=== PATIENT | male | born 1965 | race Caucasian/White ===

== ENCOUNTER 2016-08-10 07:29 | Inpatient (IN) | payer MEDICARE, BC ==
[2016-08-10] MEDS ORDERED: Lactated Ringers 1,000 ML IV SCH (08:30)
[2016-08-10] MEDS ORDERED: Thrombin (Bovine) 5,000 Unit Kit ONE (08:41)
[2016-08-10] MEDS ORDERED: Povidone-Iodine 10% Soln 118.25 ML Bottle ONE (08:41)
[2016-08-10] MEDS ORDERED: Albuterol/Ipratropium 3.0-0.5 MG/3 ML Neb Soln NEB ONE (09:00)
[2016-08-10] MEDS ORDERED: Propofol 200 MG/20 ML SDV ONE (09:01)
[2016-08-10] MEDS ORDERED: Lactated Ringers 1,000 ML ONE ×2 (09:01→13:16)
[2016-08-10] MEDS ORDERED: Succinylcholine/Normal Saline 200 MG/10 ML Syringe ONE (09:01)
[2016-08-10] MEDS ORDERED: Scopolamine 1.5 MG Transdermal Patch ONE (09:01)
[2016-08-10] MEDS ORDERED: Midazolam 1 MG/ML 2 ML SDV ONE (09:01)
[2016-08-10] MEDS ORDERED: fentaNYL 250 MCG/5 ML SDV ONE ×2 (09:01→13:08)
[2016-08-10] MEDS ORDERED: Ropivacaine 49.25 ML, Ketorolac 30 MG, EPINEPHrine 0.5 MG, cloNIDine 80 MCG, Sodium Chl... INJECT SCH ×5 (10:00)
[2016-08-10] MEDS ORDERED: Aluminum Hydroxide/Magnesium Hydroxide/Simethicone Susp 30 ML Cup PO PRN (10:06)
[2016-08-10] MEDS ORDERED: Magnesium Hydroxide 400 MG/5 ML Susp 30 ML Cup PO PRN (10:06)
[2016-08-10] MEDS ORDERED: Naloxone 0.4 MG/ML SDV IVPUSH PRN (10:06)
[2016-08-10] MEDS ORDERED: Ondansetron 4 MG/2 ML SDV IVPUSH PRN (10:06)
[2016-08-10] MEDS ORDERED: Sodium Chloride 0.9% 10 ML Syringe FLUSH PRN (10:06)
[2016-08-10] MEDS ORDERED: Neostigmine Methylsulfate 1 MG/ML 5 ML Syringe ONE (10:18)
[2016-08-10] MEDS ORDERED: Dexamethasone 4 MG/ML SDV ONE (10:18)
[2016-08-10] MEDS ORDERED: Rocuronium 50 MG/5 ML Vial ONE ×2 (10:18→11:21)
[2016-08-10] MEDS ORDERED: Lidocaine 1% 2 ML ONE (10:21)
[2016-08-10] MEDS ORDERED: ceFAZolin 2 GM in Premix Bag 1 BAG IV SCH (11:00)
[2016-08-10] MEDS: ceFAZolin 2 GM in Premix Bag 1 BAG IV ONE ×3 (11:05→20:15)
[2016-08-10] MEDS: Tranexamic Acid 1,000 MG in Sodium Chloride 0.9% 50 ML IV SCH ×2 (11:15→14:55)
[2016-08-10] MEDS: HYDROmorphone 1 MG/ML Syringe IVPUSH PRN ×2 (16:00→20:27)
[2016-08-10] MEDS ORDERED: Albuterol 0.083% 2.5 MG/3 ML Neb Soln NEB PRN (18:04)
[2016-08-10] MEDS ORDERED: Albuterol 8 GM Inhaler INH PRN (18:04)
[2016-08-10] MEDS: ceFAZolin 2 GM in Sodium Chloride 0.9% 50 ML IV SCH (18:07)
[2016-08-10] MEDS: Acetaminophen/oxyCODONE 325-5 MG Tab PO PRN (18:17)
--- NOTE | 2016-08-10 19:41 | PCM.CONS ---
H&P History of Present Illness - General Date of Service: 08/10/16 Admit Problem/Dx: Admission Diagnosis/Problem Admission Diagnosis/Problem Lumbar spinal fusion Source of Information: Patient, Provider History Limitations: Reports: No limitations - History of Present Illness Initial Comments - Free Text/Narative: This patient is a 51-year-old gentleman who I been asked to see by Dr. Chen for hospitalist consult and systems with medical management during the postoperative period. Mr. Narvaez has done well during the initial postoperative period, pain control has been adequate. Vital signs have been stable and he has remained afebrile. Currently denies chest pain, shortness of breath, nausea or vomiting. He has been relatively healthy other than his ongoing difficulty with back pain prior to the surgery. Lower Back Pain Score (Numeric/FACES): 0 - Related Data Allergies/Adverse Reactions: Allergies Allergy/AdvReac Type Severity Reaction Status Date / Time bupropion Allergy Cannot Verified 08/10/16 07:56 Remember escitalopram oxalate Allergy Diaphoresis Verified 08/10/16 07:56 [From Lexapro] venom-honey bee Allergy Airway Verified 08/10/16 07:56 [bee venom (honey bee)] Tightness Home Medications: Home Meds Albuterol [Proventil Neb Soln] 3 ml INH QID PRN 12/20/14 [History] Ascorbic Acid [Vitamin C] 500 mg PO DAILY 12/20/14 [History] Cholecalciferol (Vitamin D3) [Vitamin D] 2,000 unit PO DAILY 12/20/14 [History] ClonazePAM [KlonoPIN] 3 mg PO BEDTIME 12/20/14 [History] Cyclobenzaprine [Flexeril] 10 mg PO TID PRN 12/20/14 [History] EPINEPHrine [Epipen] 0.3 mg IM ASDIRECTED PRN 12/20/14 [History] Gemfibrozil 600 mg PO BID 12/20/14 [History] Levothyroxine 150 mcg PO DAILY 12/20/14 [History] Metaxalone [Skelaxin] 800 mg PO QID 12/20/14 [History] Ranitidine HCl [Ranitidine] 300 mg PO BID 12/20/14 [History] Simvastatin [Zocor] 20 mg PO DAILY 12/20/14 [History] Vitamin E 400 units PO DAILY 12/20/14 [History] Albuterol [Ventolin HFA] 1 - 2 inh INH Q4H PRN 07/16/15 [History] Multivitamin [Multi-Day Vitamins] 1 tab PO DAILY 07/16/15 [History] Psyllium Husk [Metamucil] 8 cap PO DAILY 07/16/15 [History] Triamcinolone Acetonide [Triamcinolone Acetonide 0.1% Crm] 1 applic TOP BID 03/21 [History] DULoxetine [Cymbalta] 60 mg PO QAM 08/19/15 [History] tiZANidine [Zanaflex] 4 mg PO BID 07/26/16 [History] Acetaminophen [Pain Reliever] 1,000 mg PO Q6HR PRN 08/06/16 [History] DULoxetine [Cymbalta] 30 mg PO QAM 08/06/16 [History] QuiNINE [Qualaquin] 324 mg PO DAILY PRN 08/10/16 [History] Past Medical History HEENT History: Reports: Impaired vision Cardiovascular History: Reports: High cholesterol Respiratory History: Reports: Asthma Gastrointestinal History: Reports: GERD, Hemorrhoids Genitourinary History: Reports: None Musculoskeletal History: Reports: Back pain, chronic, Other (see below) Other Musculoskeletal History: stenosis, scoliosis, DJD, rupured disc, broken vertabrae, trigger thumbs, slipped epiphthisis, craniotomy right side Neurological History: Reports: Head trauma, Neuropathy, peripheral Psychiatric History: Reports: Anxiety, Depression Endocrine/Metabolic History: Reports: Hypothyroidism, Obesity/BMI 30+, Other ( see below) Other Endocrine/Metabolic History: "prediabetic", thyroid disease Hematologic History: Reports: None Immunologic History: Reports: None Oncologic (Cancer) History: Reports: None Dermatologic History: Reports: Other (see below) Other Dermatologic History: contact dermatitis - Infectious Disease History Infectious Disease History: Reports: Chicken pox - Past Surgical History Head Surgeries/Procedures: Reports: Craniotomy HEENT Surgical History: Reports: Tonsillectomy Cardiovascular Surgical History: Reports: None Respiratory Surgical History: Reports: None GI Surgical History: Reports: Colonoscopy, Hernia repair/other Endocrine Surgical History: Reports: None Neurological Surgical History: Reports: None Musculoskeletal Surgical History: Reports: Carpal tunnel Other Musculoskeletal Surgeries/Procedures:: TRIGGER FINGER RELEAS ON THUMB BILAT. HIP SURGERY AT AGE 11 ON LEFT FOR SLIPPED EPEPHTHISIS Dermatological Surgical History: Reports: None Social & Family History - Family History Family Medical History: Noncontributory - Tobacco Use Smoking Status *Q: Former Smoker Years of Tobacco use: 15 Packs/Tins Daily: 1 Used Tobacco, but Quit: Yes Month Tobacco Last Used: 15 YEARS AGO Second Hand Smoke Exposure: No - Caffeine Use Caffeine Use: Reports: Tea - Alcohol Use Days Per Week of Alcohol Use: 0 - Recreational Drug Use Recreational Drug Use: Yes Drug Use in Last 12 Months: Yes Recreational Drug Type: Reports: Marijuana/Hashish Recreational Drug Use Frequency: Daily Recreational Drug Last Use: 08/09/16 H&P Review of Systems - Review of Systems: Review Of Systems: See Below General: Denies: fever, chills, weakness, diaphoresis HEENT: Reports: no symptoms Pulmonary: Reports: no symptoms Cardiovascular: Reports: no symptoms Gastrointestinal: Reports: No symptoms Genitourinary: Reports: no symptoms Musculoskeletal: Reports: back pain Skin: Reports: no symptoms Psychiatric: Reports: no symptoms Neurological: Reports: no symptoms Hematologic/Lymphatic: Reports: no symptoms Immunologic: Reports: no symptoms Exam - Exam Exam: See Below - Vital Signs Vital Signs: Last Vital Signs Temp 97.8 F 08/10/16 18:04 Pulse 74 08/10/16 18:04 Resp 18 08/10/16 18:04 BP 142/97 H 08/10/16 18:04 Pulse Ox 90 L 08/10/16 19:30 Weight: 231 lb 8 oz - Exam General: alert, oriented, cooperative Neck: supple, trachea midline, +2 carotid pulse wo bruit Lungs: Clear to auscultation, Normal respiratory effort Cardiovascular: regular rate, regular rhythm, normal S1, normal S2. No: bradycardia, tachycardia, systolic murmur, diastolic murmur Abdomen: normal bowel sounds, soft Extremities: 3, normal inspection, 10 Skin: warm, dry, intact - Patient Data Lab Results last 24 hrs: Laboratory Results - last 24 hr 08/10/16 Range/Units 07:40 Blood Type A NEGATIVE Gel Antibody Screen Negative Consult PN Assessment/Plan Procedures: Procedures BLOOD TYPING SEROLOGIC ABO (07/26/16) BLOOD TYPING SEROLOGIC RH(D) (07/26/16) CHEST X-RAY 2VW FRONTAL&LATL (07/26/16) COMPLETE CBC AUTOMATED (07/26/16) COMPLETE CBC W/AUTO DIFF WBC (07/16/15) COMPREHEN METABOLIC PANEL (07/26/16) CT HEAD/BRAIN W/O DYE (07/16/15) CULTURE OTHR SPECIMN AEROBIC (07/26/16) DIAGNOSTIC COLONOSCOPY (08/20/15) ELECTROCARDIOGRAM REPORT (07/28/16) ELECTROCARDIOGRAM TRACING (07/28/16) EMERGENCY DEPT VISIT (07/16/15) EMERGENCY DEPT VISIT (07/16/15) EMERGENCY DEPT VISIT (12/20/14) INJECT SPINE LUMBAR/SACRAL (05/05/16) MRI LUMBAR SPINE W/O DYE (07/09/16) MRI UPPER EXTREMITY W/O DYE (11/14/15) ORTHOTIC MGMT AND TRAINING (07/28/16) OT EVALUATION (12/12/15) RBC ANTIBODY SCREEN (07/26/16) RBC SED RATE NONAUTOMATED (07/16/15) ROUTINE VENIPUNCTURE (07/26/16) THERAPEUTIC EXERCISES (12/12/15) X-RAY EXAM L-2 SPINE 4/>VWS (07/26/16) X-RAY EXAM OF SHOULDER (12/20/14) X-RAY EXAM OF WRIST (12/20/14) Problem List Initiated/Reviewed/Updated: Yes My Orders last 24 hours: My Active Orders 08/10/16 18:04 Albuterol [Proventil Neb Soln] 3 ml INH QID PRN Albuterol [Ventolin HFA] 0 gm INH Q4H PRN 08/10/16 21:00 Gemfibrozil [Lopid] 600 mg PO BID Ranitidine [Zantac] 300 mg PO BID 08/11/16 09:00 DULoxetine [Cymbalta] 30 mg PO QAM DULoxetine [Cymbalta] 60 mg PO QAM Levothyroxine 150 mcg PO DAILY Psyllium Husk [Metamucil] 8 cap PO DAILY Simvastatin [Zocor] 20 mg PO DAILY Plan: ASSESSMENT AND RECOMMENDATIONS STATUS POST SPINAL FUSION-stable and doing well during the initial postoperative period -Postoperative management per Dr. Chen DYSLIPIDEMIA -Continue outpatient medications HYPOTHYROIDISM -Continue outpatient thyroid replacement medication Requesting Provider: BS Date Consult Requested: 08/10/16 Reason for Consult: Postoperative medical management Patient History Reviewed: Yes
[2016-08-10] MEDS ORDERED: Benzocaine/Cetylpyridinium/Menthol Lozenge MUCMEM STA (20:05)
[2016-08-10] MEDS: Gemfibrozil 600 MG Tab PO SCH (20:27)
--- NOTE | 2016-08-10 21:49 | OR ---
DATE OF PROCEDURE: 08/10/2016 PREOPERATIVE DIAGNOSES: 1. L4-L5 spondylolisthesis. 2. L4-L5 central stenosis. 3. L4-L5 bilateral foraminal stenosis. POSTOPERATIVE DIAGNOSES: 1. L4-L5 spondylolisthesis. 2. L4-L5 central stenosis. 3. L4-L5 bilateral foraminal stenosis. PROCEDURE: 1. Posterolateral and transforaminal lumbar interbody fusion. 2. Segmental instrumentation, L4-L5. 3. Central decompression needed in addition to the placement of the interbody device. 4. Placement of interbody device. 5. Autograft used from the laminectomy site used in the posterolateral gutter and interbody space. 6. Use of allograft and posterolateral gutter and interbody space. SENIOR FRONT END DEVELOPER: Tia Sheriff NP. ANESTHESIA: General endotracheal intubation. FLUID: Lactated Ringer solution. ESTIMATED BLOOD LOSS: 1100 mL. COMPLICATIONS: None. SPECIMEN: None. DISCHARGE DISPOSITION: Stable to PACU. INSTRUMENTATION: 1. Globus 7.5 x 30 x 50 mm screw. 2. 7.5 x 40 mm screws. 3. One 7.5 x 45 mm screw, one 45 mm michael, one 40 mm michael, and a Rise implant which is 8 x 22 x 1 as well as bioactive crunch which is called signify. INDICATIONS FOR THE PROCEDURE: The patient was seen preoperatively by myself in the clinic. He had failed nonoperative treatment. Preoperative imaging confirmed the above- mentioned diagnosis. Risks and benefits of the procedure were explained to the patient. Informed consent was obtained. DETAILS OF PROCEDURE: The patient was seen preoperatively by myself and the Anesthesia staff in the preoperative holding area where the operative site was marked. He was brought to the operative suite by the Anesthesia staff where general anesthesia was administered. A sterile Robles catheter was placed. Electro monitoring leads were placed. He was then flipped into a prone position on the Duran table, all extremities were found to be well padded. The table was then placed into a flexed position. An operating microscope as well as fluoroscopy unit was then sterilely draped. The patient was then prepped and draped in a sterile manner. Time-out was called identifying the correct patient, the correct site, and the correct procedure. Then antibiotics had begun with appropriate period of time. Neuromonitoring leads were normal at baseline. Tranexamic acid had also been run. Lateral fluoroscopy was used to identify the level of the pedicles of L4 through L5. A midline incision was made over the posterior spinous process of L3 down to the spinous process of L5. Bleeding was controlled with Bovie electrocautery. Retraction initially was done with cerebellars. Bovie electrocautery and an Aquamantys unit were used for hemostasis. A Santos elevator and Bovie elevator were then used over the posterior spinous process of L3, the entire process of L4, and the superior spinous process of L5, and carried down over the L4 and L5 lamina to the transverse processes bilaterally. I then used Versa-Trac retractor. There was a large amount of bleeding during this case and approximately 1 hour to 1 hour and 15 minutes time was taken during this case purely for hemostasis purposes. The patient was stable at all times without any change in vital signs. I then placed pedicle screws first by localizing the transverse processes. I removed part of the facet. I then drilled down the lateral aspect of the facet and then placed the PediGuard for tract and then used the pedicle probe to confirm placement followed by a tap, followed by pedicle probe , followed by screw placement. I did use lateral fluoroscopy as well as AP fluoroscopy at times for visualization of the correct pedicle path. After this had been accomplished, I then checked all my screws. The L5 left screw tested at 5. I have removed this. I did not feel a medial breach, but thought that it was most likely medial, so I then created another tract just lateral to that with a PediGuard in the same fashion and placed the screw. All screws tested above 21. I then moved on to my central decompression and left facetectomy. I used a 3-0 angled curette as well as a long ball and cottonoids to undermine the lamina of L4 and then protect all of my dura and then did a lateral facetectomy using the Kerrison rongeurs as well as small rongeurs. I then used the bipolar electrocautery going along the superior and medial aspect of the L5 pedicle to create a space over the L4-L5 disk on the left laterally. I then incised this with a 15 blade protecting the dura with a nerve root retractor and then sequentially inserted 7 through 11 mikaela. I then spent a great deal of time using straight upgoing and downgoing curettes as well as straight upgoing Pituitaries and removed as much disk spaces I could. I used the bone funnel to tamp in my graft and then inserted my implant and then opened it as far as possible. After this had been accomplished and the interbody was confirmed to be in appropriate placement, I then copiously irrigated with 2 L of Betadine infused irrigation and then placed my rods and torqued them. Final AP and lateral films were then obtained via fluoroscopy. I then decorticated the transverse processes of L4 and L5, and then put the remainder of my bone graft. Please note that the laminectomy bone was used and placed through a bone mill and then mixed with my allograft and placed in the interbody space and right posterolateral gutter. I then irrigated with a small amount of saline again and then placed FloSeal in the lateral recesses and then allowed this to set for 2 minutes and then removed any extra with a wet Ray-Kenroy. I then placed a drain superior to the wound, under the fascia, I then closed with an interlocking #2 Vicryl followed by a running 0 Vicryl, followed by another liter of Betadine-infused irrigation, followed by 0 Vicryl pops, followed by 2-0 subcutaneous sutures, followed by 2-0 Monocryl, Dermabond, and a sterile dressing. The patient was then had flipped on to his hospital bed and then had neuromonitoring leads removed. These were normal. We then removed the sterile Robles catheter and then he was transferred to the PACU in stable condition. Maicol Chen DO /[id number] MTDD
[2016-08-10] MEDS ORDERED: ClonazePAM 1 MG Tab PO PRN (22:34)
[2016-08-10] MEDS: rOPINIRole 0.5 MG Tab PO PRN (23:09)
[2016-08-11] MEDS: Acetaminophen/oxyCODONE 325-5 MG Tab PO PRN ×6 (00:16→23:59)
[2016-08-11] MEDS ORDERED: Lidocaine 2% Jelly 10 ML Urojet MUCMEM ONE (00:25)
[2016-08-11] MEDS ORDERED: Lidocaine 2% Jelly 10 ML Urojet ONE (00:33)
[2016-08-11] MEDS: ceFAZolin 2 GM in Sodium Chloride 0.9% 50 ML IV SCH ×2 (02:05→11:12)
[2016-08-11] MEDS: HYDROmorphone 1 MG/ML Syringe IVPUSH PRN (03:01)
[2016-08-11] MEDS ORDERED: Albuterol 0.083% 2.5 MG/3 ML Neb Soln INH PRN (07:12)
[2016-08-11] MEDS ORDERED: Simvastatin 20 MG Tab PO SCH (09:00)
[2016-08-11] MEDS ORDERED: Psyllium Husk Powder Sugar Free 3.4 GM Packet PO SCH (09:00)
[2016-08-11] MEDS ORDERED: DULoxetine 30 MG Cap PO SCH ×2 (09:00)
[2016-08-11] MEDS ORDERED: PSYLLIUM HUSK PO SCH (09:00)
[2016-08-11] MEDS: Levothyroxine 75 MCG Tab PO SCH (09:24)
[2016-08-11] MEDS: DULoxetine 30 MG Cap PO SCH (09:25)
[2016-08-11] MEDS: Gemfibrozil 600 MG Tab PO SCH ×2 (09:26→21:19)
--- NOTE | 2016-08-11 09:27 | PCM.PN ---
- General Info Date of Service: 08/11/16 Functional Status: Reports: pain controlled - Review of Systems General: Reports: no symptoms HEENT: Reports: no symptoms Pulmonary: Reports: no symptoms Cardiovascular: Reports: no symptoms Gastrointestinal: Reports: No symptoms Genitourinary: Reports: no symptoms Musculoskeletal: Reports: back pain Skin: Reports: no symptoms Neurological: Reports: no symptoms Psychiatric: Reports: no symptoms - Patient Data Vitals - most recent: Last Vital Signs Temp 96.8 F 08/11/16 07:38 Pulse 99 08/11/16 07:38 Resp 16 08/11/16 07:38 BP 120/66 08/11/16 07:38 Pulse Ox 99 08/11/16 07:38 Weight - most recent: 231 lb 8 oz I&O - last 24 hours: Intake & Output 08/10/16 08/11/16 08/11/16 22:59 06:59 14:59 Intake Total 155 2900 Output Total 80 1895 Balance 75 1005 Lab Results last 24 hrs: Laboratory Results - last 24 hr 08/11/16 08/11/16 Range/Units 06:13 06:13 WBC 8.5 (4.5-11.0) K/uL RBC 3.12 L (4.30-5.90) M/uL Hgb 9.1 L D (12.0-15.0) g/dL Hct 28.2 L (40.0-54.0) % MCV 90 (80-98) fL MCH 29 (27-31) pg MCHC 32 (32-36) % Plt Count 308 (150-400) K/uL Neut % (Auto) 70 H (36-66) % Lymph % (Auto) 19 L (24-44) % Becker % (Auto) 10 H (2-6) % Eos % (Auto) 0 L (2-4) % Baso % (Auto) 0 (0-1) % Sodium 135 L (140-148) mmol/L Potassium 4.0 (3.6-5.2) mmol/L Chloride 100 (100-108) mmol/L Carbon Dioxide 30 (21-32) mmol/L Anion Gap 9.0 (5.0-14.0) mmol/L BUN 11 (7-18) mg/dL Creatinine 0.9 (0.8-1.3) mg/dL Est Cr Clr Drug Dosing 88.75 mL/min Estimated GFR (MDRD) > 60 (>60) Glucose 121 H (74-106) mg/dL Calcium 8.2 L (8.5-10.1) mg/dL Med Orders - Current: Current Medications Al Hydroxide/Mg Hydroxide (Mag-Al Plus) 30 ml PO Q4H PRN PRN Reason: Indigestion Albuterol (Ventolin Hfa) 0 gm INH Q4H PRN PRN Reason: Shortness of Breath Albuterol (Proventil Neb Soln) 2.5 mg INH QIDRT PRN PRN Reason: Shortness of Breath Clonazepam (Klonopin) 3 mg PO BEDTIME PRN PRN Reason: Sleep Diazepam (Valium) 5 mg IVPUSH Q6H PRN PRN Reason: Spasms Last Admin: 08/11/16 04:09 Dose: 5 mg Duloxetine HCl (Cymbalta) 90 mg PO QAM [facility] Gemfibrozil (Lopid) 600 mg PO BID [facility] Last Admin: 08/10/16 20:27 Dose: Not Given Hydromorphone HCl (Dilaudid) 1 mg IVPUSH Q2H PRN PRN Reason: Pain Last Admin: 08/11/16 03:01 Dose: 1 mg Lactated Ringer's (Ringers, Lactated) 1,000 mls @ 0 mls/hr IV ASDIRECTED [facility] PRN Reason: KVO Last Admin: 08/10/16 08:28 Dose: 25 mls/hr Cefazolin Sodium 2 gm/ Sodium (Chloride) 50 mls @ 100 mls/hr IV Q8H [facility] Stop: 08/11/16 10:29 Last Admin: 08/11/16 02:05 Dose: 100 mls/hr Levothyroxine Sodium (Levothyroxine) 150 mcg PO DAILY@0730 [facility] Magnesium Hydroxide (Milk Of Magnesia) 30 ml PO BID PRN PRN Reason: Constipation Naloxone HCl (Narcan) 0.2 mg IVPUSH ONETIME PRN PRN Reason: Oversedation Ondansetron HCl (Zofran) 8 mg IVPUSH Q4H PRN PRN Reason: Nausea/Vomiting Oxycodone/Acetaminophen (Percocet 325-5 Mg) 1 tab PO Q6H PRN PRN Reason: Pain (moderate 4-6) Last Admin: 08/11/16 06:24 Dose: 1 tab Psyllium Husk (Metamucil Sugar Free) 1 packet PO DAILY [facility] Ranitidine HCl (Zantac) 300 mg PO BID [facility] Last Admin: 08/10/16 20:26 Dose: 300 mg Ropinirole HCl (Requip) 0.25 mg PO BEDTIME PRN PRN Reason: restless legs Last Admin: 08/10/16 23:09 Dose: 0.25 mg Senna (Senna) 8.6 mg PO BID PRN PRN Reason: Constipation Simvastatin (Zocor) 20 mg PO BEDTIME [facility] Sodium Chloride (Saline Flush) 10 ml FLUSH ASDIRECTED PRN PRN Reason: Keep Vein Open Zolpidem Tartrate (Ambien) 5 mg PO BEDTIME PRN PRN Reason: Sleep Discontinued Medications Albuterol/Ipratropium (Duoneb 3.0-0.5 Mg/3 Ml) 3 ml NEB ONETIME ONE Stop: 08/10/16 09:01 Last Admin: 08/10/16 09:56 Dose: 3 ml Benzocaine/Menthol (Cepacol Sore Throat) 1 lozenge MUCMEM NOW STA Stop: 08/10/16 20:06 Last Admin: 08/10/16 20:25 Dose: 1 ivett Ropivacaine 49.25 ml/Ketorolac Tromethamine 30 mg/Epinephrine HCl 0.5 mg/ Clonidine HCl 80 mcg/ Sodium Chloride 48.45 ml 0 ml INJECT ASDIRECTED TANA Stop: 08/10/16 12:00 Last Admin: 08/10/16 11:33 Dose: 100 syringe Dexamethasone (Dexamethasone) Confirm Administered Dose 4 mg .ROUTE .STK-MED ONE Stop: 08/10/16 10:19 Fentanyl (Sublimaze) Confirm Administered Dose 500 mcg .ROUTE .STK-MED ONE Stop: 08/10/16 09:02 Fentanyl (Sublimaze) Confirm Administered Dose 250 mcg .ROUTE .STK-MED ONE Stop: 08/10/16 13:09 Glycopyrrolate () Confirm Administered Dose 1 mg .ROUTE .STK-MED ONE Stop: 08/10/16 10:19 Cefazolin Sodium/Dextrose 2 gm (/ Premix) 50 mls @ 100 mls/hr IV ONETIME ONE Stop: 08/10/16 09:44 Last Admin: 08/10/16 20:15 Dose: Not Given Tranexamic Acid 1,000 mg/ (Sodium Chloride) 60 mls @ 240 mls/hr IV Q3H [facility] Stop: 08/10/16 13:14 Last Admin: 08/10/16 14:55 Dose: 240 mls/hr Lactated Ringer's (Ringers, Lactated) Confirm Administered Dose 1,000 mls @ as directed .ROUTE .STK-MED ONE Stop: 08/10/16 09:02 Cefazolin Sodium/Dextrose 2 gm (/ Premix) 50 mls @ 100 mls/hr IV Q8H [facility] Stop: 08/11/16 03:29 Last Admin: 08/10/16 20:15 Dose: Not Given Lidocaine HCl (Xylocaine-Mpf 1%) Confirm Administered Dose 2 mls @ as directed .ROUTE .STK-MED ONE Stop: 08/10/16 10:22 Lactated Ringer's (Ringers, Lactated) Confirm Administered Dose 1,000 mls @ as directed .ROUTE .STK-MED ONE Stop: 08/10/16 13:17 Lidocaine HCl (Xylocaine 2% Jelly) 10 ml MUCMEM ONETIME ONE Stop: 08/11/16 00:26 Last Admin: 08/11/16 00:40 Dose: 10 ml Lidocaine HCl (Xylocaine 2% Jelly) Confirm Administered Dose 10 ml .ROUTE .STK- MED ONE Stop: 08/11/16 00:34 Last Admin: 08/11/16 01:33 Dose: Not Given Midazolam HCl (Versed 1 Mg/Ml) Confirm Administered Dose 2 mg .ROUTE .STK-MED ONE Stop: 08/10/16 09:02 Neostigmine Methylsulfate (Neostigmine) Confirm Administered Dose 5 mg .ROUTE .STK-MED ONE Stop: 08/10/16 10:19 Povidone Iodine (Betadine 10% Soln) Confirm Administered Dose 1 ml .ROUTE .STK- MED ONE Stop: 08/10/16 08:42 Last Admin: 08/10/16 11:36 Dose: 30 ml Propofol (Diprivan 20 Ml) Confirm Administered Dose 200 mg .ROUTE .STK-MED ONE Stop: 08/10/16 09:02 Rocuronium Manti (Zemuron) Confirm Administered Dose 50 mg .ROUTE .STK-MED ONE Stop: 08/10/16 10:19 Rocuronium Manti (Zemuron) Confirm Administered Dose 50 mg .ROUTE .STK-MED ONE Stop: 08/10/16 11:22 Scopolamine (Transderm-Scop) Confirm Administered Dose 1.5 mg .ROUTE .STK-MED ONE Stop: 08/10/16 09:02 Simvastatin (Zocor) 20 mg PO DAILY TANA Succinylcholine Chloride (Succinylcholine In Ns Pf) Confirm Administered Dose 200 mg .ROUTE .STK-MED ONE Stop: 08/10/16 09:02 Thrombin (Thrombin-Jmi) Confirm Administered Dose 10,000 unit .ROUTE .STK-MED ONE Stop: 08/10/16 08:42 Last Admin: 08/10/16 11:37 Dose: 10,000 unit - Exam General: alert, oriented HEENT: Pupils equal, Pupils reactive, EOMI Neck: supple Extremities: normal pulses, no tenderness/swelling Skin: warm, dry, intact Wound/Incisions: healing well, drainage Neurological: no new focal deficit Psy/Mental Status: alert, normal affect, normal mood (leg pain resolved ) - Problem List & Annotations (1) Lumbar foraminal stenosis SNOMED Code(s): 57002142 Code(s): M99.83 - OTHER BIOMECHANICAL LESIONS OF LUMBAR REGION Status: Acute Current Visit: No (2) Lumbar radiculopathy SNOMED Code(s): 909556815 Code(s): M54.16 - RADICULOPATHY, LUMBAR REGION Status: Acute Current Visit: No (3) Lumbar stenosis SNOMED Code(s): 12371961 Code(s): M48.06 - SPINAL STENOSIS, LUMBAR REGION Status: Acute Current Visit: No - Problem List Review Problem List Initiated/Reviewed/Updated: Yes - My Orders Last 24 Hours: My Active Orders 08/10/16 08:30 Lactated Ringers [Ringers, Lactated] 1,000 ml IV ASDIRECTED 08/10/16 17:50 Notify Provider [RC] PRN 08/10/16 17:51 Acetaminophen/oxyCODONE [Percocet 325-5 MG] 1 tab PO Q6H PRN - Plan Plan:: POD 1 L4-5 TLIF Continue pt/ot/pain control brace when oob Will keep drain in for now. 100 out last shift pain well controlled will plan for ecf at discharge because patient lives alone. He will need assistance for ambulation as well as daily dressing changes.
--- NOTE | 2016-08-11 12:21 | PCM.PN ---
- General Info Date of Service: 08/11/16 Functional Status: Reports: ambulating - Review of Systems General: Denies: fever, chills Pulmonary: Reports: no symptoms Cardiovascular: Reports: no symptoms Gastrointestinal: Reports: No symptoms Systems Review Comment:: This patient has done fairly well since surgery yesterday, has experienced some back pain would be expected following surgery. Symptoms of nausea, but no vomiting, fairly poor oral intake thus far. Vital signs have been stable and he has remained afebrile. - Patient Data Vitals - most recent: Last Vital Signs Temp 98.1 F 08/11/16 10:51 Pulse 76 08/11/16 10:51 Resp 16 08/11/16 10:51 BP 117/63 08/11/16 10:51 Pulse Ox 99 08/11/16 07:38 Weight - most recent: 231 lb 8.013 oz I&O - last 24 hours: Intake & Output 08/10/16 08/11/16 08/11/16 22:59 06:59 14:59 Intake Total 155 2900 Output Total 80 1895 750 Balance 75 1005 -750 Lab Results last 24 hrs: Laboratory Results - last 24 hr 08/11/16 08/11/16 Range/Units 06:13 06:13 WBC 8.5 (4.5-11.0) K/uL RBC 3.12 L (4.30-5.90) M/uL Hgb 9.1 L D (12.0-15.0) g/dL Hct 28.2 L (40.0-54.0) % MCV 90 (80-98) fL MCH 29 (27-31) pg MCHC 32 (32-36) % Plt Count 308 (150-400) K/uL Neut % (Auto) 70 H (36-66) % Lymph % (Auto) 19 L (24-44) % [place] % (Auto) 10 H (2-6) % Eos % (Auto) 0 L (2-4) % Baso % (Auto) 0 (0-1) % Sodium 135 L (140-148) mmol/L Potassium 4.0 (3.6-5.2) mmol/L Chloride 100 (100-108) mmol/L Carbon Dioxide 30 (21-32) mmol/L Anion Gap 9.0 (5.0-14.0) mmol/L BUN 11 (7-18) mg/dL Creatinine 0.9 (0.8-1.3) mg/dL Est Cr Clr Drug Dosing 88.75 mL/min Estimated GFR (MDRD) > 60 (>60) Glucose 121 H (74-106) mg/dL Calcium 8.2 L (8.5-10.1) mg/dL Med Orders - Current: Current Medications Al Hydroxide/Mg Hydroxide (Mag-Al Plus) 30 ml PO Q4H PRN PRN Reason: Indigestion Albuterol (Ventolin Hfa) 0 gm INH Q4H PRN PRN Reason: Shortness of Breath Albuterol (Proventil Neb Soln) 2.5 mg INH QIDRT PRN PRN Reason: Shortness of Breath Clonazepam (Klonopin) 3 mg PO BEDTIME PRN PRN Reason: Sleep Diazepam (Valium) 5 mg IVPUSH Q6H PRN PRN Reason: Spasms Last Admin: 08/11/16 04:09 Dose: 5 mg Duloxetine HCl (Cymbalta) 90 mg PO QAM [facility] Last Admin: 08/11/16 09:25 Dose: 90 mg Gemfibrozil (Lopid) 600 mg PO BID [facility] Last Admin: 08/11/16 09:26 Dose: 600 mg Hydromorphone HCl (Dilaudid) 1 mg IVPUSH Q2H PRN PRN Reason: Pain Last Admin: 08/11/16 03:01 Dose: 1 mg Lactated Ringer's (Ringers, Lactated) 1,000 mls @ 0 mls/hr IV ASDIRECTED [facility] PRN Reason: KVO Last Admin: 08/10/16 08:28 Dose: 25 mls/hr Levothyroxine Sodium (Levothyroxine) 150 mcg PO DAILY@0730 [facility] Last Admin: 08/11/16 09:24 Dose: 150 mcg Magnesium Hydroxide (Milk Of Magnesia) 30 ml PO BID PRN PRN Reason: Constipation Metaxalone (Skelaxin) 800 mg PO QID [facility] Naloxone HCl (Narcan) 0.2 mg IVPUSH ONETIME PRN PRN Reason: Oversedation Ondansetron HCl (Zofran) 8 mg IVPUSH Q4H PRN PRN Reason: Nausea/Vomiting Oxycodone/Acetaminophen (Percocet 325-5 Mg) 1 - 2 tab PO Q6H PRN PRN Reason: Pain (moderate 4-6) Last Admin: 08/11/16 11:12 Dose: 2 tab Psyllium Fiber (Capsules (Ptom)) 0 each PO TIDMEALS [facility] Ranitidine HCl (Zantac) 300 mg PO BID [facility] Last Admin: 08/11/16 09:26 Dose: 300 mg Ropinirole HCl (Requip) 0.25 mg PO BEDTIME PRN PRN Reason: restless legs Last Admin: 08/10/16 23:09 Dose: 0.25 mg Senna (Senna) 8.6 mg PO BID PRN PRN Reason: Constipation Simvastatin (Zocor) 20 mg PO BEDTIME [facility] Sodium Chloride (Saline Flush) 10 ml FLUSH ASDIRECTED PRN PRN Reason: Keep Vein Open Zolpidem Tartrate (Ambien) 5 mg PO BEDTIME PRN PRN Reason: Sleep Discontinued Medications Albuterol/Ipratropium (Duoneb 3.0-0.5 Mg/3 Ml) 3 ml NEB ONETIME ONE Stop: 08/10/16 09:01 Last Admin: 08/10/16 09:56 Dose: 3 ml Benzocaine/Menthol (Cepacol Sore Throat) 1 lozenge MUCMEM NOW STA Stop: 08/10/16 20:06 Last Admin: 08/10/16 20:25 Dose: 1 ivett Ropivacaine 49.25 ml/Ketorolac Tromethamine 30 mg/Epinephrine HCl 0.5 mg/ Clonidine HCl 80 mcg/ Sodium Chloride 48.45 ml 0 ml INJECT ASDIRECTED [facility] Stop: 08/10/16 12:00 Last Admin: 08/10/16 11:33 Dose: 100 syringe Dexamethasone (Dexamethasone) Confirm Administered Dose 4 mg .ROUTE .STK-MED ONE Stop: 08/10/16 10:19 Fentanyl (Sublimaze) Confirm Administered Dose 500 mcg .ROUTE .STK-MED ONE Stop: 08/10/16 09:02 Fentanyl (Sublimaze) Confirm Administered Dose 250 mcg .ROUTE .STK-MED ONE Stop: 08/10/16 13:09 Glycopyrrolate () Confirm Administered Dose 1 mg .ROUTE .STK-MED ONE Stop: 08/10/16 10:19 Cefazolin Sodium/Dextrose 2 gm (/ Premix) 50 mls @ 100 mls/hr IV ONETIME ONE Stop: 08/10/16 09:44 Last Admin: 08/10/16 20:15 Dose: Not Given Tranexamic Acid 1,000 mg/ (Sodium Chloride) 60 mls @ 240 mls/hr IV Q3H [facility] Stop: 08/10/16 13:14 Last Admin: 08/10/16 14:55 Dose: 240 mls/hr Lactated Ringer's (Ringers, Lactated) Confirm Administered Dose 1,000 mls @ as directed .ROUTE .STK-MED ONE Stop: 08/10/16 09:02 Cefazolin Sodium/Dextrose 2 gm (/ Premix) 50 mls @ 100 mls/hr IV Q8H [facility] Stop: 08/11/16 03:29 Last Admin: 08/10/16 20:15 Dose: Not Given Lidocaine HCl (Xylocaine-Mpf 1%) Confirm Administered Dose 2 mls @ as directed .ROUTE .STK-MED ONE Stop: 08/10/16 10:22 Lactated Ringer's (Ringers, Lactated) Confirm Administered Dose 1,000 mls @ as directed .ROUTE .STK-MED ONE Stop: 08/10/16 13:17 Cefazolin Sodium 2 gm/ Sodium (Chloride) 50 mls @ 100 mls/hr IV Q8H [facility] Stop: 08/11/16 10:29 Last Admin: 08/11/16 11:12 Dose: 100 mls/hr Lidocaine HCl (Xylocaine 2% Jelly) 10 ml MUCMEM ONETIME ONE Stop: 08/11/16 00:26 Last Admin: 08/11/16 00:40 Dose: 10 ml Lidocaine HCl (Xylocaine 2% Jelly) Confirm Administered Dose 10 ml .ROUTE .STK- MED ONE Stop: 08/11/16 00:34 Last Admin: 08/11/16 01:33 Dose: Not Given Midazolam HCl (Versed 1 Mg/Ml) Confirm Administered Dose 2 mg .ROUTE .STK-MED ONE Stop: 08/10/16 09:02 Neostigmine Methylsulfate (Neostigmine) Confirm Administered Dose 5 mg .ROUTE .STK-MED ONE Stop: 08/10/16 10:19 Oxycodone/Acetaminophen (Percocet 325-5 Mg) 1 tab PO Q6H PRN PRN Reason: Pain (moderate 4-6) Last Admin: 08/11/16 06:24 Dose: 1 tab Povidone Iodine (Betadine 10% Soln) Confirm Administered Dose 1 ml .ROUTE .STK- MED ONE Stop: 08/10/16 08:42 Last Admin: 08/10/16 11:36 Dose: 30 ml Propofol (Diprivan 20 Ml) Confirm Administered Dose 200 mg .ROUTE .STK-MED ONE Stop: 08/10/16 09:02 Psyllium Husk (Metamucil Sugar Free) 1 packet PO DAILY [facility] Last Admin: 08/11/16 09:26 Dose: Not Given Rocuronium [place] (Zemuron) Confirm Administered Dose 50 mg .ROUTE .STK-MED ONE Stop: 08/10/16 10:19 Rocuronium [place] (Zemuron) Confirm Administered Dose 50 mg .ROUTE .STK-MED ONE Stop: 08/10/16 11:22 Scopolamine (Transderm-Scop) Confirm Administered Dose 1.5 mg .ROUTE .STK-MED ONE Stop: 08/10/16 09:02 Succinylcholine Chloride (Succinylcholine In Ns Pf) Confirm Administered Dose 200 mg .ROUTE .STK-MED ONE Stop: 08/10/16 09:02 Thrombin (Thrombin-Jmi) Confirm Administered Dose 10,000 unit .ROUTE .STK-MED ONE Stop: 08/10/16 08:42 Last Admin: 08/10/16 11:37 Dose: 10,000 unit - Exam Quality Assessment: urine catheter General: alert, oriented, cooperative, mild distress Lungs: Clear to auscultation, Normal respiratory effort Cardiovascular: regular rate, regular rhythm, no murmurs Abdomen: bowel sounds present, soft, no tenderness, no distension Extremities: no edema Skin: warm, dry, intact - Problem List Review Problem List Initiated/Reviewed/Updated: Yes - My Orders Last 24 Hours: My Active Orders 08/10/16 18:04 Albuterol [Ventolin HFA] 0 gm INH Q4H PRN 08/10/16 21:00 Gemfibrozil [Lopid] 600 mg PO BID Ranitidine [Zantac] 300 mg PO BID 08/10/16 22:32 rOPINIRole [Requip] 0.25 mg PO BEDTIME PRN 08/10/16 22:34 ClonazePAM [KlonoPIN] 3 mg PO BEDTIME PRN 08/11/16 07:12 Albuterol [Proventil Neb Soln] 2.5 mg INH QIDRT PRN 08/11/16 07:30 Levothyroxine 150 mcg PO DAILY@0730 08/11/16 09:00 DULoxetine [Cymbalta] 90 mg PO QAM 08/11/16 12:00 Patient's Own Medication [Ptom] 0 each PO TIDMEALS 08/11/16 16:00 Metaxalone [Skelaxin] 800 mg PO QID 08/11/16 21:00 Simvastatin [Zocor] 20 mg PO BEDTIME - Plan Plan:: ASSESSMENT AND RECOMMENDATIONS STATUS POST SPINAL FUSION-currently has some difficulty with pain control as well as nausea and poor oral intake. Denies any symptoms of chest pain or pressure or shortness of breath, vital signs have been stable and he has remained afebrile. -Postoperative management per Dr. Chen DYSLIPIDEMIA -Continue outpatient medications HYPOTHYROIDISM -Continue outpatient thyroid replacement medication
[2016-08-11] MEDS: PSYLLIUM FIBER PO SCH ×2 (14:46→18:30)
[2016-08-11] MEDS: rOPINIRole 0.5 MG Tab PO PRN (21:10)
[2016-08-11] MEDS: Simvastatin 20 MG Tab PO SCH (21:19)
[2016-08-12] MEDS ORDERED: hydrOXYzine HCl 25 MG Tab PO PRN (00:18)
[2016-08-12] MEDS: Sennosides 8.6 MG Tab PO PRN ×2 (00:37→17:09)
[2016-08-12] MEDS: Zolpidem 5 MG Tab PO PRN ×2 (01:42→21:35)
[2016-08-12] MEDS: Acetaminophen/oxyCODONE 325-5 MG Tab PO PRN ×4 (05:31→21:35)
[2016-08-12] MEDS: Levothyroxine 75 MCG Tab PO SCH (09:03)
[2016-08-12] MEDS: PSYLLIUM FIBER PO SCH ×3 (09:04→17:12)
[2016-08-12] MEDS: DULoxetine 30 MG Cap PO SCH (09:05)
[2016-08-12] MEDS: Gemfibrozil 600 MG Tab PO SCH ×2 (09:06→21:37)
[2016-08-12] MEDS ORDERED: Diazepam 5 MG Tab PO PRN (11:58)
--- NOTE | 2016-08-12 12:01 | PCM.PN ---
- Review of Systems General: Reports: no symptoms HEENT: Reports: no symptoms Pulmonary: Reports: no symptoms Cardiovascular: Reports: no symptoms Gastrointestinal: Reports: No symptoms Genitourinary: Reports: no symptoms Musculoskeletal: Reports: leg pain, joint pain Skin: Reports: no symptoms Neurological: Reports: no symptoms Psychiatric: Reports: no symptoms - Patient Data Vitals - most recent: Last Vital Signs Temp 98.6 F 08/12/16 10:57 Pulse 82 08/12/16 10:57 Resp 18 08/12/16 10:57 BP 115/71 08/12/16 10:57 Pulse Ox 96 08/12/16 10:57 Weight - most recent: 231 lb 8.013 oz I&O - last 24 hours: Intake & Output 08/11/16 08/12/16 08/12/16 22:59 06:59 14:59 Intake Total 600 120 Output Total 1650 1675 Balance -1650 -1075 120 Lab Results last 24 hrs: Laboratory Results - last 24 hr 08/12/16 08/12/16 Range/Units 05:00 05:00 WBC 6.3 (4.5-11.0) K/uL RBC 2.86 L (4.30-5.90) M/uL Hgb 8.4 L (12.0-15.0) g/dL Hct 25.9 L (40.0-54.0) % MCV 91 (80-98) fL MCH 29 (27-31) pg MCHC 32 (32-36) % Plt Count 289 (150-400) K/uL Neut % (Auto) 67 H (36-66) % Lymph % (Auto) 20 L (24-44) % [place] % (Auto) 11 H (2-6) % Eos % (Auto) 1 L (2-4) % Baso % (Auto) 1 (0-1) % Sodium 140 (140-148) mmol/L Potassium 3.7 (3.6-5.2) mmol/L Chloride 102 (100-108) mmol/L Carbon Dioxide 30 (21-32) mmol/L Anion Gap 7.7 (5.0-14.0) mmol/L BUN 8 (7-18) mg/dL Creatinine 0.7 L (0.8-1.3) mg/dL Est Cr Clr Drug Dosing 113.82 mL/min Estimated GFR (MDRD) > 60 (>60) Glucose 122 H (74-106) mg/dL Calcium 8.4 L (8.5-10.1) mg/dL Med Orders - Current: Current Medications Al Hydroxide/Mg Hydroxide (Mag-Al Plus) 30 ml PO Q4H PRN PRN Reason: Indigestion Albuterol (Ventolin Hfa) 0 gm INH Q4H PRN PRN Reason: Shortness of Breath Albuterol (Proventil Neb Soln) 2.5 mg INH QIDRT PRN PRN Reason: Shortness of Breath Clonazepam (Klonopin) 3 mg PO BEDTIME PRN PRN Reason: Sleep Last Admin: 08/11/16 21:16 Dose: 3 mg Diazepam (Valium) 5 mg IVPUSH Q6H PRN PRN Reason: Spasms Last Admin: 08/11/16 04:09 Dose: 5 mg Duloxetine HCl (Cymbalta) 90 mg PO QAM [facility] Last Admin: 08/12/16 09:05 Dose: 90 mg Gemfibrozil (Lopid) 600 mg PO BID [facility] Last Admin: 08/12/16 09:06 Dose: 600 mg Hydromorphone HCl (Dilaudid) 1 mg IVPUSH Q2H PRN PRN Reason: Pain Last Admin: 08/11/16 03:01 Dose: 1 mg Hydroxyzine HCl (Atarax) 50 mg PO Q8H PRN PRN Reason: Pain Last Admin: 08/12/16 00:35 Dose: 50 mg Lactated Ringer's (Ringers, Lactated) 1,000 mls @ 0 mls/hr IV ASDIRECTED [facility] PRN Reason: KVO Last Admin: 08/10/16 08:28 Dose: 25 mls/hr Levothyroxine Sodium (Levothyroxine) 150 mcg PO DAILY@0730 [facility] Last Admin: 08/12/16 09:03 Dose: 150 mcg Magnesium Hydroxide (Milk Of Magnesia) 30 ml PO BID PRN PRN Reason: Constipation Metaxalone (Skelaxin) 800 mg PO QID [facility] Last Admin: 08/12/16 09:08 Dose: 800 mg Naloxone HCl (Narcan) 0.2 mg IVPUSH ONETIME PRN PRN Reason: Oversedation Ondansetron HCl (Zofran) 8 mg IVPUSH Q4H PRN PRN Reason: Nausea/Vomiting Oxycodone/Acetaminophen (Percocet 325-5 Mg) 1 - 2 tab PO Q4H PRN PRN Reason: Pain (moderate 4-6) Last Admin: 08/12/16 11:11 Dose: 2 tab Psyllium Fiber (Capsules (Ptom)) 0 each PO TIDMEALS [facility] Last Admin: 08/12/16 09:04 Dose: 1 each Ranitidine HCl (Zantac) 300 mg PO BID [facility] Last Admin: 08/12/16 09:07 Dose: 300 mg Ropinirole HCl (Requip) 0.25 mg PO BEDTIME PRN PRN Reason: restless legs Last Admin: 08/11/16 21:10 Dose: 0.25 mg Senna (Senna) 8.6 mg PO BID PRN PRN Reason: Constipation Last Admin: 08/12/16 00:37 Dose: 8.6 mg Simvastatin (Zocor) 20 mg PO BEDTIME [facility] Last Admin: 08/11/16 21:19 Dose: 20 mg Sodium Chloride (Saline Flush) 10 ml FLUSH ASDIRECTED PRN PRN Reason: Keep Vein Open Zolpidem Tartrate (Ambien) 5 mg PO BEDTIME PRN PRN Reason: Sleep Last Admin: 08/12/16 01:42 Dose: 5 mg Discontinued Medications Albuterol/Ipratropium (Duoneb 3.0-0.5 Mg/3 Ml) 3 ml NEB ONETIME ONE Stop: 08/10/16 09:01 Last Admin: 08/10/16 09:56 Dose: 3 ml Benzocaine/Menthol (Cepacol Sore Throat) 1 lozenge [facility] NOW STA Stop: 08/10/16 20:06 Last Admin: 08/10/16 20:25 Dose: 1 ivett Ropivacaine 49.25 ml/Ketorolac Tromethamine 30 mg/Epinephrine HCl 0.5 mg/ Clonidine HCl 80 mcg/ Sodium Chloride 48.45 ml 0 ml INJECT ASDIRECTED [facility] Stop: 08/10/16 12:00 Last Admin: 08/10/16 11:33 Dose: 100 syringe Dexamethasone (Dexamethasone) Confirm Administered Dose 4 mg .ROUTE .STK-MED ONE Stop: 08/10/16 10:19 Fentanyl (Sublimaze) Confirm Administered Dose 500 mcg .ROUTE .STK-MED ONE Stop: 08/10/16 09:02 Fentanyl (Sublimaze) Confirm Administered Dose 250 mcg .ROUTE .STK-MED ONE Stop: 08/10/16 13:09 Glycopyrrolate () Confirm Administered Dose 1 mg .ROUTE .STK-MED ONE Stop: 08/10/16 10:19 Cefazolin Sodium/Dextrose 2 gm (/ Premix) 50 mls @ 100 mls/hr IV ONETIME ONE Stop: 08/10/16 09:44 Last Admin: 08/10/16 20:15 Dose: Not Given Tranexamic Acid 1,000 mg/ (Sodium Chloride) 60 mls @ 240 mls/hr IV Q3H [facility] Stop: 08/10/16 13:14 Last Admin: 08/10/16 14:55 Dose: 240 mls/hr Lactated Ringer's (Ringers, Lactated) Confirm Administered Dose 1,000 mls @ as directed .ROUTE .ST-MED ONE Stop: 08/10/16 09:02 Cefazolin Sodium/Dextrose 2 gm (/ Premix) 50 mls @ 100 mls/hr IV Q8H [facility] Stop: 08/11/16 03:29 Last Admin: 08/10/16 20:15 Dose: Not Given Lidocaine HCl (Xylocaine-Mpf 1%) Confirm Administered Dose 2 mls @ as directed .ROUTE .ST-MED ONE Stop: 08/10/16 10:22 Lactated Ringer's (Ringers, Lactated) Confirm Administered Dose 1,000 mls @ as directed .ROUTE .ST-MED ONE Stop: 08/10/16 13:17 Cefazolin Sodium 2 gm/ Sodium (Chloride) 50 mls @ 100 mls/hr IV Q8H [facility] Stop: 08/11/16 10:29 Last Admin: 08/11/16 11:12 Dose: 100 mls/hr Lidocaine HCl (Xylocaine 2% Jelly) 10 ml MUCMEM ONETIME ONE Stop: 08/11/16 00:26 Last Admin: 08/11/16 00:40 Dose: 10 ml Lidocaine HCl (Xylocaine 2% Jelly) Confirm Administered Dose 10 ml .ROUTE .STK- MED ONE Stop: 08/11/16 00:34 Last Admin: 08/11/16 01:33 Dose: Not Given Midazolam HCl (Versed 1 Mg/Ml) Confirm Administered Dose 2 mg .ROUTE .STK-MED ONE Stop: 08/10/16 09:02 Neostigmine Methylsulfate (Neostigmine) Confirm Administered Dose 5 mg .ROUTE .STK-MED ONE Stop: 08/10/16 10:19 Oxycodone/Acetaminophen (Percocet 325-5 Mg) 1 tab PO Q6H PRN PRN Reason: Pain (moderate 4-6) Last Admin: 08/11/16 06:24 Dose: 1 tab Oxycodone/Acetaminophen (Percocet 325-5 Mg) 1 - 2 tab PO Q6H PRN PRN Reason: Pain (moderate 4-6) Last Admin: 08/11/16 23:59 Dose: 2 tab Povidone Iodine (Betadine 10% Soln) Confirm Administered Dose 1 ml .ROUTE .STK- MED ONE Stop: 08/10/16 08:42 Last Admin: 08/10/16 11:36 Dose: 30 ml Propofol (Diprivan 20 Ml) Confirm Administered Dose 200 mg .ROUTE .STK-MED ONE Stop: 08/10/16 09:02 Psyllium Husk (Metamucil Sugar Free) 1 packet PO DAILY [facility] Last Admin: 08/11/16 09:26 Dose: Not Given Rocuronium [place] (Zemuron) Confirm Administered Dose 50 mg .ROUTE .STK-MED ONE Stop: 08/10/16 10:19 Rocuronium [place] (Zemuron) Confirm Administered Dose 50 mg .ROUTE .STK-MED ONE Stop: 08/10/16 11:22 Scopolamine (Transderm-Scop) Confirm Administered Dose 1.5 mg .ROUTE .STK-MED ONE Stop: 08/10/16 09:02 Succinylcholine Chloride (Succinylcholine In Ns Pf) Confirm Administered Dose 200 mg .ROUTE .STK-MED ONE Stop: 08/10/16 09:02 Thrombin (Thrombin-Jmi) Confirm Administered Dose 10,000 unit .ROUTE .STK-MED ONE Stop: 08/10/16 08:42 Last Admin: 08/10/16 11:37 Dose: 10,000 unit - Exam Back Exam: normal inspection Extremities: normal pulses Skin: warm, dry, intact Wound/Incisions: healing well, dressing dry and intact, no drainage Neurological: no new focal deficit Psy/Mental Status: alert, normal affect, normal mood - Problem List & Annotations (1) Lumbar foraminal stenosis SNOMED Code(s): 42803270 Code(s): M99.83 - OTHER BIOMECHANICAL LESIONS OF LUMBAR REGION Status: Acute Current Visit: No (2) Lumbar radiculopathy SNOMED Code(s): 768490560 Code(s): M54.16 - RADICULOPATHY, LUMBAR REGION Status: Acute Current Visit: No (3) Lumbar stenosis SNOMED Code(s): 28275802 Code(s): M48.06 - SPINAL STENOSIS, LUMBAR REGION Status: Acute Current Visit: No - Problem List Review Problem List Initiated/Reviewed/Updated: Yes - My Orders Last 24 Hours: My Active Orders 08/11/16 17:27 Drain Removal [OM.PC] Routine 08/12/16 00:18 Acetaminophen/oxyCODONE [Percocet 325-5 MG] 1 - 2 tab PO Q4H PRN hydrOXYzine HCl [Atarax] 50 mg PO Q8H PRN 08/12/16 11:58 DC Rob[place] Catheter [Urinary Catheter Removal] [RC] Per Unit Routine Diazepam [Valium] 5 mg PO TID PRN 08/12/16 12:00 Dexamethasone 10 mg IVPUSH Q6H 08/12/16 14:00 Gabapentin [Neurontin] 300 mg PO TID 08/12/16 17:30 Tamsulosin [Flomax] 0.4 mg PO BIDPC - Plan Plan:: ASSESSMENT AND RECOMMENDATIONS POD 2 L4-5 TLIF Was called during night re burning in calf. resolved. Believe may be having trouble sleeping due to decreased MJ intake Has burning in left hip Will start flomax and remove catheter Will start decadron and gabapentin for left hip pain Switch from IV to oral diazepam Will discuss home care vs [facility] Most likely dc tomorrow
[2016-08-12] MEDS: Dexamethasone 4 MG/ML 5 ML MDV IVPUSH SCH ×4 (12:27→19:34)
--- NOTE | 2016-08-12 12:52 | PCM.PN ---
- General Info Date of Service: 08/12/16 Functional Status: Reports: tolerating diet, ambulating, urinating - Review of Systems General: Reports: weakness. Denies: fever, chills Pulmonary: Reports: no symptoms Cardiovascular: Reports: no symptoms Gastrointestinal: Reports: No symptoms Systems Review Comment:: This patient has continued to have intermittent difficulty with pain especially in his back related to recent surgery as well as his left hip area. Vital signs have been stable and he has remained afebrile, activity level seems fairly good and he has been able to ambulate independently. - Patient Data Vitals - most recent: Last Vital Signs Temp 98.6 F 08/12/16 10:57 Pulse 82 08/12/16 10:57 Resp 18 08/12/16 10:57 BP 115/71 08/12/16 10:57 Pulse Ox 96 08/12/16 10:57 Weight - most recent: 231 lb 8.013 oz I&O - last 24 hours: Intake & Output 08/11/16 08/12/16 08/12/16 22:59 06:59 14:59 Intake Total 600 120 Output Total 1650 1675 Balance -1650 -1075 120 Lab Results last 24 hrs: Laboratory Results - last 24 hr 08/12/16 08/12/16 Range/Units 05:00 05:00 WBC 6.3 (4.5-11.0) K/uL RBC 2.86 L (4.30-5.90) M/uL Hgb 8.4 L (12.0-15.0) g/dL Hct 25.9 L (40.0-54.0) % MCV 91 (80-98) fL MCH 29 (27-31) pg MCHC 32 (32-36) % Plt Count 289 (150-400) K/uL Neut % (Auto) 67 H (36-66) % Lymph % (Auto) 20 L (24-44) % [place] % (Auto) 11 H (2-6) % Eos % (Auto) 1 L (2-4) % Baso % (Auto) 1 (0-1) % Sodium 140 (140-148) mmol/L Potassium 3.7 (3.6-5.2) mmol/L Chloride 102 (100-108) mmol/L Carbon Dioxide 30 (21-32) mmol/L Anion Gap 7.7 (5.0-14.0) mmol/L BUN 8 (7-18) mg/dL Creatinine 0.7 L (0.8-1.3) mg/dL Est Cr Clr Drug Dosing 113.82 mL/min Estimated GFR (MDRD) > 60 (>60) Glucose 122 H (74-106) mg/dL Calcium 8.4 L (8.5-10.1) mg/dL Med Orders - Current: Current Medications Al Hydroxide/Mg Hydroxide (Mag-Al Plus) 30 ml PO Q4H PRN PRN Reason: Indigestion Albuterol (Ventolin Hfa) 0 gm INH Q4H PRN PRN Reason: Shortness of Breath Albuterol (Proventil Neb Soln) 2.5 mg INH QIDRT PRN PRN Reason: Shortness of Breath Clonazepam (Klonopin) 3 mg PO BEDTIME PRN PRN Reason: Sleep Last Admin: 08/11/16 21:16 Dose: 3 mg Dexamethasone (Dexamethasone) 10 mg IVPUSH Q6H ON LICENSE OF [facility] Last Admin: 08/12/16 12:32 Dose: Not Given Diazepam (Valium.) 5 mg PO TID PRN PRN Reason: Spasms Duloxetine HCl (Cymbalta) 90 mg PO QAM ON LICENSE OF [facility] Last Admin: 08/12/16 09:05 Dose: 90 mg Gabapentin (Neurontin) 300 mg PO TID TANA Gemfibrozil (Lopid) 600 mg PO BID ON LICENSE OF [facility] Last Admin: 08/12/16 09:06 Dose: 600 mg Hydromorphone HCl (Dilaudid) 1 mg IVPUSH Q2H PRN PRN Reason: Pain Last Admin: 08/11/16 03:01 Dose: 1 mg Hydroxyzine HCl (Atarax) 50 mg PO Q8H PRN PRN Reason: Pain Last Admin: 08/12/16 00:35 Dose: 50 mg Lactated Ringer's (Ringers, Lactated) 1,000 mls @ 0 mls/hr IV ASDIRECTED ON LICENSE OF [facility] PRN Reason: KVO Last Admin: 08/10/16 08:28 Dose: 25 mls/hr Levothyroxine Sodium (Levothyroxine) 150 mcg PO DAILY@0730 ON LICENSE OF [facility] Last Admin: 08/12/16 09:03 Dose: 150 mcg Magnesium Hydroxide (Milk Of Magnesia) 30 ml PO BID PRN PRN Reason: Constipation Metaxalone (Skelaxin) 800 mg PO QID ON LICENSE OF [facility] Last Admin: 08/12/16 09:08 Dose: 800 mg Naloxone HCl (Narcan) 0.2 mg IVPUSH ONETIME PRN PRN Reason: Oversedation Ondansetron HCl (Zofran) 8 mg IVPUSH Q4H PRN PRN Reason: Nausea/Vomiting Oxycodone/Acetaminophen (Percocet 325-5 Mg) 1 - 2 tab PO Q4H PRN PRN Reason: Pain (moderate 4-6) Last Admin: 08/12/16 11:11 Dose: 2 tab Psyllium Fiber (Capsules (Ptom)) 0 each PO TIDMEALS ON LICENSE OF [facility] Last Admin: 08/12/16 12:27 Dose: 1 each Ranitidine HCl (Zantac) 300 mg PO BID ON LICENSE OF [facility] Last Admin: 08/12/16 09:07 Dose: 300 mg Ropinirole HCl (Requip) 0.25 mg PO BEDTIME PRN PRN Reason: restless legs Last Admin: 08/11/16 21:10 Dose: 0.25 mg Senna (Senna) 8.6 mg PO BID PRN PRN Reason: Constipation Last Admin: 08/12/16 00:37 Dose: 8.6 mg Simvastatin (Zocor) 20 mg PO BEDTIME ON LICENSE OF [facility] Last Admin: 08/11/16 21:19 Dose: 20 mg Sodium Chloride (Saline Flush) 10 ml FLUSH ASDIRECTED PRN PRN Reason: Keep Vein Open [facility] Zolpidem Tartrate (Ambien) 5 mg PO BEDTIME PRN PRN Reason: Sleep Last Admin: 08/12/16 01:42 Dose: 5 mg Discontinued Medications Albuterol/Ipratropium (Duoneb 3.0-0.5 Mg/3 Ml) 3 ml NEB ONETIME ONE Stop: 08/10/16 09:01 Last Admin: 08/10/16 09:56 Dose: 3 ml Benzocaine/Menthol (Cepacol Sore Throat) 1 lozenge MUCMEM NOW STA Stop: 08/10/16 20:06 Last Admin: 08/10/16 20:25 Dose: 1 ivett Ropivacaine 49.25 ml/Ketorolac Tromethamine 30 mg/Epinephrine HCl 0.5 mg/ Clonidine HCl 80 mcg/ Sodium Chloride 48.45 ml 0 ml INJECT ASDIRECTED ON LICENSE OF [facility] Stop: 08/10/16 12:00 Last Admin: 08/10/16 11:33 Dose: 100 syringe Dexamethasone (Dexamethasone) Confirm Administered Dose 4 mg .ROUTE .STK-MED ONE Stop: 08/10/16 10:19 Diazepam (Valium) 5 mg IVPUSH Q6H PRN PRN Reason: Spasms Last Admin: 08/11/16 04:09 Dose: 5 mg Fentanyl (Sublimaze) Confirm Administered Dose 500 mcg .ROUTE .STK-MED ONE Stop: 08/10/16 09:02 Fentanyl (Sublimaze) Confirm Administered Dose 250 mcg .ROUTE .STK-MED ONE Stop: 08/10/16 13:09 Glycopyrrolate () Confirm Administered Dose 1 mg .ROUTE .STK-MED ONE Stop: 08/10/16 10:19 Cefazolin Sodium/Dextrose 2 gm (/ Premix) 50 mls @ 100 mls/hr IV ONETIME ONE Stop: 08/10/16 09:44 Last Admin: 08/10/16 20:15 Dose: Not Given Tranexamic Acid 1,000 mg/ (Sodium Chloride) 60 mls @ 240 mls/hr IV Q3H ON LICENSE OF [facility] Stop: 08/10/16 13:14 Last Admin: 08/10/16 14:55 Dose: 240 mls/hr Lactated Ringer's (Ringers, Lactated) Confirm Administered Dose 1,000 mls @ as directed .ROUTE .STK-MED ONE Stop: 08/10/16 09:02 Cefazolin Sodium/Dextrose 2 gm (/ Premix) 50 mls @ 100 mls/hr IV Q8H ON LICENSE OF [facility] Stop: 08/11/16 03:29 Last Admin: 08/10/16 20:15 Dose: Not Given Lidocaine HCl (Xylocaine-Mpf 1%) Confirm Administered Dose 2 mls @ as directed .ROUTE .STK-MED ONE Stop: 08/10/16 10:22 Lactated Ringer's (Ringers, Lactated) Confirm Administered Dose 1,000 mls @ as directed .ROUTE .STK-MED ONE Stop: 08/10/16 13:17 Cefazolin Sodium 2 gm/ Sodium (Chloride) 50 mls @ 100 mls/hr IV Q8H ON LICENSE OF [facility] Stop: 08/11/16 10:29 Last Admin: 08/11/16 11:12 Dose: 100 mls/hr Lidocaine HCl (Xylocaine 2% Jelly) 10 ml MUCMEM ONETIME ONE Stop: 08/11/16 00:26 Last Admin: 08/11/16 00:40 Dose: 10 ml Lidocaine HCl (Xylocaine 2% Jelly) Confirm Administered Dose 10 ml .ROUTE .STK- MED ONE Stop: 08/11/16 00:34 Last Admin: 08/11/16 01:33 Dose: Not Given Midazolam HCl (Versed 1 Mg/Ml) Confirm Administered Dose 2 mg .ROUTE .STK-MED ONE Stop: 08/10/16 09:02 Neostigmine Methylsulfate (Neostigmine) Confirm Administered Dose 5 mg .ROUTE .STK-MED ONE Stop: 08/10/16 10:19 Oxycodone/Acetaminophen (Percocet 325-5 Mg) 1 tab PO Q6H PRN PRN Reason: Pain (moderate 4-6) Last Admin: 08/11/16 06:24 Dose: 2 tab Oxycodone/Acetaminophen (Percocet 325-5 Mg) 1 - 2 tab PO Q6H PRN PRN Reason: Pain (moderate 4-6) Last Admin: 08/11/16 23:59 Dose: 2 tab Povidone Iodine (Betadine 10% Soln) Confirm Administered Dose 1 ml .ROUTE .STK- MED ONE Stop: 08/10/16 08:42 Last Admin: 08/10/16 11:36 Dose: 30 ml Propofol (Diprivan 20 Ml) Confirm Administered Dose 200 mg .ROUTE .STK-MED ONE Stop: 08/10/16 09:02 Psyllium Husk (Metamucil Sugar Free) 1 packet PO DAILY ON LICENSE OF [facility] Last Admin: 08/11/16 09:26 Dose: Not Given Rocuronium [place] (Zemuron) Confirm Administered Dose 50 mg .ROUTE .STK-MED ONE Stop: 08/10/16 10:19 Rocuronium [place] (Zemuron) Confirm Administered Dose 50 mg .ROUTE .STK-MED ONE Stop: 08/10/16 11:22 Scopolamine (Transderm-Scop) Confirm Administered Dose 1.5 mg .ROUTE .STK-MED ONE Stop: 08/10/16 09:02 Succinylcholine Chloride (Succinylcholine In Ns Pf) Confirm Administered Dose 200 mg .ROUTE .STK-MED ONE Stop: 08/10/16 09:02 Thrombin (Thrombin-Jmi) Confirm Administered Dose 10,000 unit .ROUTE .STK-MED ONE Stop: 08/10/16 08:42 Last Admin: 08/10/16 11:37 Dose: 10,000 unit - Exam General: alert, oriented, cooperative, mild distress Lungs: Clear to auscultation, Normal respiratory effort Cardiovascular: regular rate, regular rhythm, no murmurs Abdomen: bowel sounds present, soft, no tenderness, no distension Extremities: no edema Skin: warm, dry, intact - Problem List Review Problem List Initiated/Reviewed/Updated: Yes - My Orders Last 24 Hours: My Active Orders 08/11/16 12:00 Patient's Own Medication [Ptom] 0 each PO TIDMEALS 08/11/16 16:00 Metaxalone [Skelaxin] 800 mg PO QID 08/11/16 21:00 Simvastatin [Zocor] 20 mg PO BEDTIME - Plan Plan:: ASSESSMENT AND RECOMMENDATIONS STATUS POST SPINAL FUSION-continues to experience some difficulty with pain control. Overall strength as well as appetite seem to be improving -Postoperative management per Dr. Chen DYSLIPIDEMIA -Continue outpatient medications HYPOTHYROIDISM -Continue outpatient thyroid replacement medication
[2016-08-12] MEDS: Gabapentin 300 MG Cap PO SCH ×2 (14:26→21:38)
[2016-08-12] MEDS: Tamsulosin 0.4 MG Cap.ER PO SCH (17:13)
[2016-08-12] MEDS: Simvastatin 20 MG Tab PO SCH (21:43)
[2016-08-13] MEDS: Dexamethasone 4 MG/ML 5 ML MDV IVPUSH SCH ×3 (03:20→14:55)
[2016-08-13] MEDS: Acetaminophen/oxyCODONE 325-5 MG Tab PO PRN ×3 (03:21→12:35)
[2016-08-13] MEDS: PSYLLIUM FIBER PO SCH ×2 (07:27→12:32)
[2016-08-13] MEDS: Tamsulosin 0.4 MG Cap.ER PO SCH (07:27)
[2016-08-13] MEDS: Levothyroxine 75 MCG Tab PO SCH (07:27)
[2016-08-13] MEDS ORDERED: Ferrous Sulfate 325 MG Tab PO SCH (08:00)
[2016-08-13] MEDS: DULoxetine 30 MG Cap PO SCH (09:23)
[2016-08-13] MEDS: Gabapentin 300 MG Cap PO SCH ×2 (09:23→13:47)
[2016-08-13] MEDS: Gemfibrozil 600 MG Tab PO SCH (09:23)
[2016-08-13 15:19] VITALS: BP 139/94
--- NOTE | 2016-08-14 00:05 | DISCH ---
PRIMARY DIAGNOSES: 1. L4-5 spondylolisthesis. 2. L4-5 stenosis. 3. L4-5 radiculopathy. PROCEDURE: 1. L4-5 transforaminal lumbar interbody fusion. CHAIR POST MACHINE OPERATOR: Dr. Reginaldo Pinedo, hospitalist. ALLERGIES: HONEY BEEN VENOM, BUPROPION AND ESCITALOPRAM. DISCHARGE DIET: Regular diet. DISCHARGE MEDICATIONS: Albuterol 1 to 2 inhaled q.4, Cymbalta 60 mg p.o. daily. Gemfibrozil 600 mg p.o. b.i.d., levothyroxine 150 mcg p.o. daily. Percocet 5/325 1 to 2 p.o. q.6 hours p.r.n. pain. Diazepam 5 mg p.o. t.i.d. p.r.n. spasm. Ambien 5 mg p.o. at bedtime p.r.n. insomnia. FOLLOWUP: Follow up with Dr. Chen in 1 month in clinic. DISCHARGE DISPOSITION: To home with Home Health Services. SUMMARY OF HOSPITAL STAY: The patient was admitted on TuesdayAugust 10 for the above- mentioned procedures, kept postoperatively for physical therapy, occupational therapy, pain control, and DVT prophylaxis. He did very well postoperatively. He did have some minor pain issues, which were resolved with Vistaril. He did have radiculopathy postoperatively just into his hip, which resolved with Decadron and gabapentin. He was discharged home in good condition on day #3 with home health services in 4 week follow up.
== END 2016-08-13 17:05 | disposition home health service (06) | DRG 460 ==
LOC: JP.SDS 07:29 → EDSTATUS 09:15 → JP.SDSSCHI 09:15 → JP.MS 15:40
PROVIDERS: ADMIT Orthopaedic Surgery; ATTEND Orthopaedic Surgery
PROC: 0SG00A1 (ICD-10-PCS; principal; 2016-08-10)
PROC: 0QU007Z Supplement Lumbar Vertebra with Autologous Tissue Substitute, Open Approach (ICD-10-PCS; principal; 2016-08-10)
PROC: 0QH004Z Insertion of Internal Fixation Device into Lumbar Vertebra, Open Approach (ICD-10-PCS; principal; 2016-08-10)
DX: M48.06 Spinal stenosis, lumbar region (principal); M43.16 Spondylolisthesis, lumbar region; E03.9 Hypothyroidism, unspecified; E78.5 Hyperlipidemia, unspecified; G40.909 Epilepsy, unspecified, not intractable, without status epilepticus; F34.1 Dysthymic disorder; K21.9 Gastro-esophageal reflux disease without esophagitis; J45.909 Unspecified asthma, uncomplicated; Z91.030 Bee allergy status; Z88.8 Allergy status to other drugs, medicaments and biological substances; R73.03 Prediabetes; H54.7 Unspecified visual loss; M54.9 Dorsalgia, unspecified; G89.29 Other chronic pain; M54.16 Radiculopathy, lumbar region
CPT/HCPCS: 36415; 76001; 80048; 85025; 86850; 86900; 86901; 94762; 97110-GP; 97161-GP; 97165-GO; 97530-GP; 97535-GP; A9270-GY; C1713; J0690; J1100; J1170; J2250; J2704; J2795; J3010; J3360; J7050; J7120; J7620

== ENCOUNTER 2016-12-02 14:24 | Emergency (ER) | payer MEDICARE, BC ==
[2016-12-02 14:44] VITALS: BP 147/89
[2016-12-02] MEDS ORDERED: Ketorolac 60 MG/2 ML SDV IM ONE (15:10)
--- NOTE | 2016-12-02 15:14 | EDM.PDOC ---
ED HPI GENERAL MEDICAL PROBLEM - General Chief Complaint: Back Pain or Injury Stated Complaint: LUMBAR SPINE FUSION/PAIN Time Seen by Provider: 12/02/16 14:57 Source of Information: Reports: Patient, RN Notes Reviewed History Limitations: Reports: No Limitations - History of Present Illness INITIAL COMMENTS - FREE TEXT/NARRATIVE: 51-year-old gentleman presents emergency department day complaint of low back pain, he has a known history of chronic back pain recently underwent lumbar fusion approximately 3 months ago states this has helped him with pain this particular day the pain is different and it seems out of proportion which she uses it controls with NSAIDs and Tylenol he does not use any narcotics for the pain denies any loss of bowel or bladder no fever Lower Back Pain Score (Numeric/FACES): 8 - Related Data Allergies Allergy/AdvReac Type Severity Reaction Status Date / Time venom-honey bee Allergy Severe Airway Verified 12/02/16 14:42 [bee venom (honey bee)] Tightness bupropion Allergy Cannot Verified 12/02/16 14:42 Remember escitalopram oxalate Allergy Diaphoresis Verified 12/02/16 14:42 [From [employer]] Home Meds: Home Meds Ascorbic Acid [Vitamin C] 500 mg PO DAILY 12/20/14 [History] Cholecalciferol (Vitamin D3) [Vitamin D3] 2,000 unit PO DAILY 12/20/14 [History] ClonazePAM [KlonoPIN] 3 mg PO BEDTIME 12/20/14 [History] Cyclobenzaprine [Flexeril] 10 mg PO TID PRN 12/20/14 [History] EPINEPHrine [Epipen] 0.3 mg IM ASDIRECTED PRN 12/20/14 [History] Gemfibrozil 600 mg PO BID 12/20/14 [History] Levothyroxine 150 mcg PO DAILY 12/20/14 [History] Metaxalone [Skelaxin] 800 mg PO QID 12/20/14 [History] Ranitidine HCl [Ranitidine] 300 mg PO BID 12/20/14 [History] Simvastatin [Zocor] 20 mg PO DAILY 12/20/14 [History] Vitamin E 400 units PO DAILY 12/20/14 [History] Albuterol [Ventolin HFA] 1 - 2 inh INH Q4H PRN 07/16/15 [History] Multivitamin [Multi-Day Vitamins] 1 tab PO DAILY 07/16/15 [History] Psyllium Husk [Metamucil] 8 cap PO DAILY 07/16/15 [History] Triamcinolone Acetonide [Triamcinolone Acetonide 0.1% Crm] 1 applic TOP BID 03/21 [History] DULoxetine [Cymbalta] 90 mg PO QAM 08/19/15 [History] tiZANidine [Zanaflex] 4 mg PO BID 07/26/16 [History] Acetaminophen [Pain Reliever] 1,000 mg PO Q6HR PRN 08/06/16 [History] Albuterol Sulfate 2.5 mg IH QID PRN 08/11/16 [History] Gabapentin [Neurontin] 300 mg PO TID #90 cap 08/13/16 [Rx] Past Medical History HEENT History: Reports: Impaired Vision Cardiovascular History: Reports: High Cholesterol Respiratory History: Reports: Asthma Gastrointestinal History: Reports: GERD, Hemorrhoids Musculoskeletal History: Reports: Back Pain, Chronic, Other (See Below) Other Musculoskeletal History: stenosis, scoliosis, DJD, rupured disc, broken vertabrae, trigger thumbs, slipped epiphthisis, craniotomy right side Neurological History: Reports: Head Trauma, Neuropathy, Peripheral Psychiatric History: Reports: Anxiety, Depression Endocrine/Metabolic History: Reports: Hypothyroidism, Obesity/BMI 30+, Other ( See Below) Other Endocrine/Metabolic History: "prediabetic", thyroid disease Dermatologic History: Reports: Other (See Below) Other Dermatologic History: contact dermatitis - Infectious Disease History Infectious Disease History: Reports: Chicken Pox - Past Surgical History Head Surgeries/Procedures: Reports: Craniotomy Respiratory Surgical History: Reports: None GI Surgical History: Reports: Colonoscopy, Hernia Repair/Other Neurological Surgical History: Reports: Spinal Fusion, Other (See Below) Other Neurological Surgeries/Procedures: craniotomy Musculoskeletal Surgical History: Reports: Carpal Tunnel Social & Family History - Family History Family Medical History: Noncontributory - Tobacco Use Smoking Status *Q: Never Smoker Years of Tobacco use: 15 Packs/Tins Daily: 1 Used Tobacco, but Quit: Yes Month Tobacco Last Used: 15 YEARS AGO Second Hand Smoke Exposure: No - Caffeine Use Caffeine Use: Reports: Tea - Alcohol Use Days Per Week of Alcohol Use: 0 - Recreational Drug Use Recreational Drug Use: Yes Drug Use in Last 12 Months: Yes Recreational Drug Type: Reports: Marijuana/Hashish Recreational Drug Use Frequency: Daily Recreational Drug Last Use: 08/09/16 ED ROS GENERAL - Review of Systems Review Of Systems: See Below Constitutional: Reports: No Symptoms HEENT: Reports: No Symptoms Respiratory: Reports: No Symptoms Cardiovascular: Reports: No Symptoms GI/Abdominal: Reports: No Symptoms : Reports: No Symptoms Musculoskeletal: Reports: Back Pain Skin: Reports: No Symptoms Neurological: Reports: Other (Peripheral neuropathy) ED EXAM,LOWER BACK PAIN/INJURY - Physical Exam Exam: See Below Exam Limited By: No Limitations General Appearance: Alert, WD/WN, No Apparent Distress Back Exam: Normal Inspection, Decreased Range of Motion, Muscle Spasm, Paraspinal Tenderness. No: CVA Tenderness (R), CVA Tenderness (L), Vertebral Tenderness Extremities: Normal Inspection, No Pedal Edema DTR - Lower Extremities: 2+: Knee (R), Knee (L) Course - Vital Signs Last Recorded V/S: Last Vital Signs Temp 97.8 F 12/02/16 14:40 Pulse 79 12/02/16 14:40 Resp 14 12/02/16 14:40 BP 147/89 H 12/02/16 14:40 Pulse Ox 95 12/02/16 14:40 - Orders/Labs/Meds Meds: Medications Discontinued Medications Generic Name Dose Route Start Last Admin Trade Name Bambi PRN Reason Stop Dose Admin Ketorolac Tromethamine 60 mg 12/02/16 15:10 12/02/16 15:27 Toradol IM 12/02/16 15:11 60 mg ONETIME ONE Administration Departure - Departure Time of Disposition: 15:54 Disposition: Home, Self-Care 01 Condition: Good Clinical Impression: Back pain Qualifiers: Back pain location: low back pain Chronicity: chronic Back pain laterality: left Sciatica presence: without sciatica Qualified Code(s): M54.5 - Low back pain; G89.29 - Other chronic pain - Discharge Information Forms: ED Department Discharge Additional Instructions: Continue to use prescribed medications, Please followup with your primary care provider in 2-3 days if not better, please call return to the emergency department with worsening of symptoms. - Assessment/Plan Plan: Assessment Acuity = acute on chronic Site and laterality = chronic low back pain with lumbar fusion and spinal stenosis Etiology = unclear etiology to exacerbation Manifestations = no Location of injury = Home Lab values = none Plan He had good improvement with Toradol injection follow-up with primary care 3-5 days for reevaluation Patient was in agreement with the plan all questions were answered, they were instructed to return to the emergency department or call for worsening symptoms. This note was dictated using [employer] voice recognition software please call with any questions.
== END 2016-12-02 16:23 | disposition home or self-care (01) ==
LOC: JP.ED 14:24
DX: G89.29 Other chronic pain (principal); M54.5 Low back pain; J45.909 Unspecified asthma, uncomplicated; E78.00 Pure hypercholesterolemia, unspecified; E03.9 Hypothyroidism, unspecified; E66.9 Obesity, unspecified; Z98.890 Other specified postprocedural states; Z79.899 Other long term (current) drug therapy; Z88.8 Allergy status to other drugs, medicaments and biological substances; Z91.030 Bee allergy status
CPT/HCPCS: 96372; 99283; J1885

== ENCOUNTER 2017-07-19 06:57 | Inpatient (IN) | payer MEDICARE, BC ==
[~2017-07-19 06:57] MED LIST: Povidone-Iodine 10% Soln 118.25 ML Bottle ONE; Thrombin (Bovine) 5,000 Unit Kit ONE
[2017-07-19] MEDS ORDERED: Lactated Ringers 1,000 ML IV SCH (07:30)
[2017-07-19] MEDS ORDERED: Gabapentin 300 MG Cap PO ONE (07:30)
[2017-07-19] MEDS ORDERED: Acetaminophen 500 MG Tab PO ONE (07:30)
[2017-07-19] MEDS: Scopolamine 1.5 MG Transdermal Patch TOP SCH (07:40)
[2017-07-19] MEDS ORDERED: Dexamethasone 4 MG/ML SDV ONE (08:11)
[2017-07-19] MEDS ORDERED: Rocuronium 50 MG/5 ML Vial ONE (08:11)
[2017-07-19] MEDS ORDERED: Ondansetron 4 MG/2 ML SDV ONE (08:11)
[2017-07-19] MEDS ORDERED: Propofol 200 MG/20 ML SDV ONE (08:11)
[2017-07-19] MEDS ORDERED: Succinylcholine/Normal Saline 200 MG/10 ML Syringe ONE (08:11)
[2017-07-19] MEDS ORDERED: Linezolid 200 MG/100 ML Bag IRR ONE ×3 (08:45→12:28)
[2017-07-19] MEDS ORDERED: Lactated Ringers 1,000 ML ONE ×2 (09:05→09:43)
[2017-07-19] MEDS ORDERED: Albuterol/Ipratropium 3.0-0.5 MG/3 ML Neb Soln NEB ONE (09:15)
[2017-07-19] MEDS ORDERED: Naloxone 0.4 MG/ML SDV IVPUSH PRN (09:22)
[2017-07-19] MEDS ORDERED: HYDROmorphone/Normal Saline 15 MG/30 ML PCA IV PRN (09:22)
[2017-07-19] MEDS ORDERED: Ketamine 500 MG/5 ML MDV IV ONE (09:35)
[2017-07-19] MEDS: ceFAZolin 2 GM in Premix Bag 1 BAG IV ONE ×2 (10:40→15:26)
[2017-07-19] MEDS: Tranexamic Acid 1,000 MG in Sodium Chloride 0.9% 50 ML IV SCH ×3 (10:43→15:28)
[2017-07-19] MEDS ORDERED: fentaNYL 250 MCG/5 ML SDV ONE ×2 (11:07→11:19)
[2017-07-19] MEDS ORDERED: Naloxone 0.4 MG/ML SDV IV PRN (14:52)
[2017-07-19] MEDS ORDERED: hydrOXYzine HCl 100 MG/2 ML SDV IM PRN (14:56)
[2017-07-19] MEDS ORDERED: hydrOXYzine HCl 25 MG Tab PO PRN (14:56)
[2017-07-19] MEDS ORDERED: Ondansetron 4 MG/2 ML SDV IVPUSH PRN (14:56)
[2017-07-19] MEDS: VERIFY SCOPOLAMINE PATCH TOP SCH (15:32)
[2017-07-19] MEDS: Gabapentin 300 MG Cap PO SCH ×2 (15:33→21:13)
[2017-07-19] MEDS ORDERED: Pantoprazole 40 MG Vial IV SCH (16:00)
[2017-07-19] MEDS: Albuterol/Ipratropium 3.0-0.5 MG/3 ML Neb Soln INH SCH ×2 (16:39→21:13)
[2017-07-19] MEDS: Dextrose 5%-Lactated Ringers 1,000 ML IV SCH ×2 (17:32→23:40)
[2017-07-19] MEDS: ceFAZolin 2 GM in Premix Bag 1 BAG IV SCH (17:34)
[2017-07-19] MEDS ORDERED: Benzocaine/Cetylpyridinium/Menthol Lozenge MUCMEM PRN (18:22)
--- NOTE | 2017-07-19 20:59 | OR ---
DATE OF PROCEDURE: 07/19/2017 PREOPERATIVE DIAGNOSES: 1. L5-S1 degenerative disk disease. 2. Lumbar foraminal stenosis, L5-S1. 3. Lumbar radiculopathy, L5-S1. POSTOPERATIVE DIAGNOSES: 1. L5-S1 degenerative disk disease. 2. Lumbar foraminal stenosis, L5-S1. 3. Lumbar radiculopathy, L5-S1. PROCEDURES PERFORMED: 1. Anterior lumbar interbody fusion, L5-S1. 2. Interbody device placement, L5-S1. 3. Segmental instrumentation, L5-S1. CO-SURGEON: Babatunde Chen MD ANESTHESIA: General endotracheal intubation. FLUIDS: Lactated Ringer solution. ESTIMATED BLOOD LOSS: Less than 25 mL. COMPLICATIONS: None. SPECIMENS: None. DISCHARGE DISPOSITION: Stable to PACU. INDICATION FOR THE PROCEDURE: The patient was seen preoperatively in the clinic. He is well known to me. We performed a posterior lumbar fusion on him previously. He subsequently developed a left lower extremity radiculopathy, was treated nonoperatively for a period of time, which failed. Preoperative CT myelogram confirmed the above-mentioned diagnosis. The risks and benefits of the procedure were explained to the patient. Informed consent was obtained. DETAILS OF PROCEDURE: The patient was seen preoperatively by myself and the Anesthesia staff in the preop holding area where the operative site was marked. He was brought to the operative suite by the Anesthesia staff where general anesthesia was administered. He was placed onto a Duran table on a flat frame. Neuromonitoring leads were placed. Remained normal at baseline and normal throughout the procedure. A sterile Robles catheter was placed to fluoroscopy and was draped in a sterile manner. The patient was then prepped and draped in a sterile manner. Time-out was called identifying the correct patient, correct procedure, the correct site, and antibiotics had begun with appropriate period of time. Please see Babatunde Chen's note for exposure. After exposure was obtained, Bovie electrocautery unit was used to go through the anterior annulus and delineate the disk space. I then used a neural Santos to go along the endplates. I used an angled Santos for the inferior endplate of L5 as it had quite a concavity. We then removed the disk using straight and angled curettes as well as pituitaries. I used TLIF mikaela sequentially from 9 to 15 which also helps break up the disk and then I removed it using curettes and pituitaries as well. I then inserted a 15 degree 25 x 31, 15 mm height spacer and evaluated this fluoroscopically. It showed that was in good position and supplied adequate distraction. I then removed that space trial and then cleaned out any extra disk material. I then took my final implant which was a Magnify S 25 x 31, 15 degree, 14 to 17 mm spacer in placed, Signify allograft inside of it and then inserted it to proper depth under lateral view using fluoroscopy. After this had been accomplished, I confirmed on the AP view, there was a good position. I then expanded it under fluoroscopic visualization. I did expand approximately 1-2 mm and then applied my screws which were 30 mm screws, all three of them, one up and two down. I did apply some FloSeal, as there was a little bit of bleeding from the endplates. After this had been accomplished, we then took our final AP and lateral fluoro films. Please see Babatunde Chen's note for closure. Maicol Chen DO /[id number]
[2017-07-19] MEDS: [UNRECOGNIZED DRUG - OTHER] PO SCH (21:13)
[2017-07-19] MEDS: tiZANidine 4 MG Tab PO SCH (21:15)
[2017-07-19] MEDS: PSYLLIUM PO SCH (21:16)
[2017-07-19] MEDS: ClonazePAM 1 MG Tab PO SCH (21:18)
[2017-07-20] MEDS: ceFAZolin 2 GM in Premix Bag 1 BAG IV SCH ×2 (02:02→10:04)
[2017-07-20] MEDS: Dextrose 5%-Lactated Ringers 1,000 ML IV SCH ×3 (05:28→23:37)
[2017-07-20] MEDS: PSYLLIUM PO SCH ×4 (05:29→21:14)
[2017-07-20] MEDS ORDERED: HYDROmorphone 2 MG Tab PO PRN (07:15)
[2017-07-20] MEDS: Levothyroxine 75 MCG Tab PO SCH (07:33)
[2017-07-20] MEDS: Acetaminophen/oxyCODONE 325-5 MG Tab PO PRN ×5 (07:52→23:37)
[2017-07-20] MEDS: tiZANidine 4 MG Tab PO SCH ×2 (08:25→21:13)
[2017-07-20] MEDS: Gabapentin 300 MG Cap PO SCH ×3 (08:25→21:12)
[2017-07-20] MEDS: Enoxaparin 40 MG/0.4 ML Syringe SUBCUT SCH (08:25)
[2017-07-20] MEDS: VERIFY SCOPOLAMINE PATCH TOP SCH (08:26)
[2017-07-20] MEDS: DULoxetine 30 MG Cap PO SCH (08:27)
[2017-07-20] MEDS: Bisacodyl 5 MG Tab PO SCH ×2 (08:28→21:10)
--- NOTE | 2017-07-20 09:39 | PN ---
DATE OF SERVICE: 07/20/2017 SUBJECTIVE: Kunal is postoperative day 1, following a left ALIF. He states his pain is controlled. Vital signs have been stable. Oral intake was 1200, TANJA drain put out 30 mL of a light pink serosanguineous drainage. REVIEW OF SYSTEMS: Remainder of review of systems is negative for any pertinent positives and negatives. OBJECTIVE: GENERAL: Kunal is a 52-year-old male. He is alert and orientated. SKIN: Warm and dry. Color is pale. VITAL SIGNS: TPR 97.5, 79, 18, blood pressure 113/62. HEENT: Negative. NECK: Supple. HEART: Regular rate and rhythm. LUNGS: Clear. ABDOMEN: Dressing is dry and intact. TANJA drain intact. EXTREMITIES: Without peripheral edema. ASSESSMENT: Anterior lumbar interbody fusion, L5-S1; interbody device placement, L5-S1; and segmental instrumentation, L5-S1 for L5-S1 degenerative disk disease; lumbar foraminal stenosis, L5-S1; and lumbar radiculopathy, L5-S1. PLAN: Lovenox 40 mg subcu daily. Regular diet. Discontinue ASSEMBLER CHASSIS and continuous pulse ox. Percocet 5/325 mg 1 to 2 q.4 hours p.r.n. pain. Discontinue Robles catheter. Dulcolax 20 mg p.o. b.i.d., Senna Plus 2 tablets p.o. b.i.d. Good pulmonary toilet. We will evaluate p.r.n. or in the a.m. Gayla Ley PA-C /[id number]
--- NOTE | 2017-07-20 10:36 | PCM.PN ---
- General Info Functional Status: Reports: Pain Controlled - Review of Systems General: Reports: No Symptoms HEENT: Reports: No Symptoms Pulmonary: Reports: No Symptoms Cardiovascular: Reports: No Symptoms Gastrointestinal: Reports: Abdominal Pain Genitourinary: Reports: No Symptoms Skin: Reports: No Symptoms Neurological: Reports: No Symptoms Psychiatric: Reports: No Symptoms - Patient Data Vitals - Most Recent: Last Vital Signs Temp 97.5 F 07/20/17 07:30 Pulse 79 07/20/17 07:30 Resp 18 07/20/17 07:30 BP 113/62 07/20/17 07:30 Pulse Ox 98 07/20/17 07:30 Weight - Most Recent: 225 lb 1 oz I&O - Last 24 Hours: Intake & Output 07/19/17 07/20/17 07/20/17 22:59 06:59 14:59 Intake Total 401 3104 170 Output Total 320 1420 350 Balance 81 1684 -180 Lab Results Last 24 Hours: Laboratory Results - last 24 hr 07/20/17 07/20/17 Range/Units 04:30 04:30 WBC 8.7 (4.5-11.0) K/uL RBC 3.42 L (4.30-5.90) M/uL Hgb 10.3 L D (12.0-15.0) g/dL Hct 31.5 L (40.0-54.0) % MCV 92 (80-98) fL MCH 30 (27-31) pg MCHC 33 (32-36) % Plt Count 313 (150-400) K/uL Sodium 141 (140-148) mmol/L Potassium 3.5 L (3.6-5.2) mmol/L Chloride 104 (100-108) mmol/L Carbon Dioxide 29 (21-32) mmol/L Anion Gap 11.5 (5.0-14.0) mmol/L BUN 8 (7-18) mg/dL Creatinine 0.8 (0.8-1.3) mg/dL Est Cr Clr Drug Dosing 95.26 mL/min Estimated GFR (MDRD) > 60 (>60) Glucose 136 H (74-106) mg/dL Calcium 8.4 L (8.5-10.1) mg/dL Phosphorus 3.3 (2.5-4.9) mg/dL Magnesium 1.7 L (1.8-2.4) mg/dL Med Orders - Current: Current Medications Albuterol/Ipratropium (Duoneb 3.0-0.5 Mg/3 Ml) 3 ml INH QIDRT [facility] Last Admin: 07/19/17 21:13 Dose: 3 ml Albuterol/Ipratropium (Duoneb 3.0-0.5 Mg/3 Ml) 3 ml INH ASDIRECTED PRN PRN Reason: * Benzocaine/Menthol (Cepacol Sore Throat) 1 lozenge MUCMEM Q1H PRN PRN Reason: Sore Throat Last Admin: 07/19/17 18:41 Dose: 1 ivett Bisacodyl (Dulcolax) 20 mg PO BID [facility] Last Admin: 07/20/17 08:28 Dose: Not Given Clonazepam (Klonopin) 3 mg PO BEDTIME [facility] Last Admin: 07/19/17 21:18 Dose: 3 mg Cyclobenzaprine HCl (Flexeril) 10 mg PO Q6H PRN PRN Reason: Muscle Spasm Duloxetine HCl (Cymbalta) 90 mg PO DAILY [facility] Last Admin: 07/20/17 08:27 Dose: 90 mg Enoxaparin Sodium (Lovenox) 40 mg SUBCUT DAILY [facility] Last Admin: 07/20/17 08:25 Dose: 40 mg Gabapentin (Neurontin) 300 mg PO TID [facility] Last Admin: 07/20/17 08:25 Dose: 300 mg Hydroxyzine HCl (Vistaril) 100 mg IM Q4H PRN PRN Reason: Pain Hydroxyzine HCl (Atarax) 100 mg PO Q4H PRN PRN Reason: Pain Dextrose/Lactated Ringer's (Dextrose 5%-Lactated Ringers) 1,000 mls @ 100 mls/ hr IV ASDIRECTED [facility] Levothyroxine Sodium (Levothyroxine) 150 mcg PO DAILY@0730 [facility] Last Admin: 07/20/17 07:33 Dose: 150 mcg Naloxone HCl (Narcan) 0.1 mg IV ASDIRECTED PRN PRN Reason: decreased respiratory rate Verify Scopolamine (Patch) 0 each TOP DAILY [facility] Last Admin: 07/20/17 08:26 Dose: Not Given Ondansetron HCl (Zofran) 4 mg IVPUSH Q4H PRN PRN Reason: Nausea Oxycodone/Acetaminophen (Percocet 325-5 Mg) 1 - 2 tab PO Q4H PRN PRN Reason: paiin Last Admin: 07/20/17 10:03 Dose: 2 tab Psyllium Cap (Ptom) 1 each PO QID [facility] Last Admin: 07/20/17 10:04 Dose: 1 each Arsenicum (Restful (Legs) (Ptom)) 2 each PO BEDTIME [facility] Last Admin: 07/19/17 21:13 Dose: 2 each Ranitidine HCl (Zantac) 300 mg PO BID [facility] Last Admin: 07/20/17 08:25 Dose: 300 mg Scopolamine (Transderm-Scop) 1.5 mg TOP Q72H [facility] Last Admin: 07/19/17 07:40 Dose: 1.5 mg Senna/Docusate Sodium (Senna Plus) 2 tab PO BID [facility] Last Admin: 07/20/17 08:26 Dose: 2 tab Tizanidine HCl (Zanaflex) 4 mg PO BID [facility] Last Admin: 07/20/17 08:25 Dose: 4 mg Discontinued Medications Acetaminophen (Tylenol Extra Strength) 1,000 mg PO ONETIME ONE Stop: 07/19/17 07:31 Last Admin: 07/19/17 07:39 Dose: 1,000 mg Albuterol/Ipratropium (Duoneb 3.0-0.5 Mg/3 Ml) 3 ml NEB ONETIME ONE Stop: 07/19/17 09:16 Last Admin: 07/19/17 09:20 Dose: 3 ml Dexamethasone (Dexamethasone) Confirm Administered Dose 4 mg .ROUTE .STK-MED ONE Stop: 07/19/17 08:12 Fentanyl (Sublimaze) Confirm Administered Dose 250 mcg .ROUTE .STK-MED ONE Stop: 07/19/17 11:08 Fentanyl (Sublimaze) Confirm Administered Dose 250 mcg .ROUTE .STK-MED ONE Stop: 07/19/17 11:20 Fentanyl Citrate (Fentanyl) Confirm Administered Dose 500 mcg .ROUTE .STK-MED ONE Stop: 07/19/17 08:12 Gabapentin (Neurontin) 300 mg PO ONETIME ONE Stop: 07/19/17 07:31 Last Admin: 07/19/17 07:39 Dose: 300 mg Hydromorphone HCl (Dilaudid Family Life Counselor 15 Mg In Ns 30 Ml) 0 mg IV ASDIRECTED PRN; Protocol PRN Reason: Pain Last Admin: 07/19/17 09:48 Dose: 0.3 mg Hydromorphone HCl (Dilaudid) 2 - 4 mg PO Q4H PRN PRN Reason: Pain Lactated Ringer's (Ringers, Lactated) 1,000 mls @ 0 mls/hr IV ASDIRECTED [facility] PRN Reason: KVO Last Admin: 07/19/17 08:35 Dose: 25 mls/hr Cefazolin Sodium 2 gm/ Premix 20 mls @ 240 mls/hr IV ONETIME ONE Stop: 07/19/17 08:04 Last Admin: 07/19/17 15:26 Dose: Not Given Tranexamic Acid 1,000 mg/ (Sodium Chloride) 60 mls @ 240 mls/hr IV Q3H [facility] Stop: 07/19/17 12:49 Last Admin: 07/19/17 13:54 Dose: 240 mls/hr Ketamine HCl 100 mg/ Sodium (Chloride) 100 mls @ 19.2 mls/hr IV ASDIRECTED [facility] PRN Reason: 5 MCG/KG/MIN Stop: 07/19/17 11:35 Linezolid (Zyvox) Confirm Administered Dose 100 mls @ as directed .ROUTE .STK- MED ONE Stop: 07/19/17 06:36 Lactated Ringer's (Ringers, Lactated) Confirm Administered Dose 1,000 mls @ as directed .ROUTE .STK-MED ONE Stop: 07/19/17 09:06 Lactated Ringer's (Ringers, Lactated) Confirm Administered Dose 1,000 mls @ as directed .ROUTE .STK-MED ONE Stop: 07/19/17 09:44 Propofol (Diprivan 100 Ml) Confirm Administered Dose 100 mls @ as directed .ROUTE .STK-MED ONE Stop: 07/19/17 13:40 Dextrose/Lactated Ringer's (Dextrose 5%-Lactated Ringers) 1,000 mls @ 175 mls/ hr IV ASDIRECTED [facility] Last Admin: 07/20/17 05:28 Dose: 175 mls/hr Cefazolin Sodium/Dextrose 2 gm (/ Premix) 50 mls @ 100 mls/hr IV Q8H [facility] Stop: 07/20/17 10:29 Last Admin: 07/20/17 10:04 Dose: 100 mls/hr Ketamine HCl (Ketalar) 32 mg IV ONETIME ONE Stop: 07/19/17 09:36 Last Admin: 07/19/17 15:26 Dose: Not Given Linezolid (Zyvox) 200 mg IRR .STK-MED ONE Stop: 07/19/17 12:29 Last Admin: 07/19/17 12:28 Dose: 200 mg Ondansetron HCl (Zofran) Confirm Administered Dose 4 mg .ROUTE .STK-MED ONE Stop: 07/19/17 08:12 Pantoprazole Sodium (Protonix Iv) 40 mg IV Q24H [facility] Last Admin: 07/19/17 15:34 Dose: 40 mg Povidone Iodine (Betadine 10% Soln) Confirm Administered Dose 1 ml .ROUTE .STK- MED ONE Stop: 07/19/17 06:36 Propofol (Diprivan 20 Ml) Confirm Administered Dose 200 mg .ROUTE .STK-MED ONE Stop: 07/19/17 08:12 Rocuronium [place] (Zemuron) Confirm Administered Dose 50 mg .ROUTE .STK-MED ONE Stop: 07/19/17 08:12 Succinylcholine Chloride (Succinylcholine In Ns Pf) Confirm Administered Dose 200 mg .ROUTE .STK-MED ONE Stop: 07/19/17 08:12 Thrombin (Thrombin-Jmi) Confirm Administered Dose 15,000 unit .ROUTE .STK-MED ONE Stop: 07/19/17 06:36 - Exam General: Alert, Oriented HEENT: Pupils Equal, Pupils Reactive, Mucous Membr. Moist/[place] Neck: Supple, Trachea Midline Lungs: Normal Respiratory Effort Extremities: Normal Inspection, Normal Range of Motion, Non-Tender, No Pedal Edema, Normal Capillary Refill Peripheral Pulses: 2+: Dorsalis Pedis (L), Dorsalis Pedis (R) Skin: Warm, Dry, Intact Wound/Incisions: Healing Well, Dressing Dry and Intact Psy/Mental Status: Alert, Normal Affect, Normal Mood - Problem List & Annotations (1) Fusion of lumbar spine SNOMED Code(s): 251320857 Code(s): M43.26 - FUSION OF SPINE, LUMBAR REGION Status: Chronic Current Visit: No (2) Lumbar foraminal stenosis SNOMED Code(s): 326191136659 Code(s): M99.83 - OTHER BIOMECHANICAL LESIONS OF LUMBAR REGION Status: Chronic Current Visit: No (3) Lumbar radiculopathy SNOMED Code(s): 832107288 Code(s): M54.16 - RADICULOPATHY, LUMBAR REGION Status: Chronic Current Visit: No (4) Lumbar stenosis SNOMED Code(s): 64945724 Code(s): M48.06 - SPINAL STENOSIS, LUMBAR REGION * DO NOT USE * Status: Chronic Current Visit: No Qualifiers: Neurogenic claudication status: with neurogenic claudication Qualified Code (s): M48.062 - Spinal stenosis, lumbar region with neurogenic claudication - Problem List Review Problem List Initiated/Reviewed/Updated: Yes - My Orders Last 24 Hours: My Active Orders 07/19/17 18:02 OT Evaluation and Treatment [CONS] Routine 07/20/17 04:00 Communication Order [RC] ROUTINE - Plan Plan:: A: POD 1 ALIF L5-S1 p: PT/OT, pain control, await BM
[2017-07-20] MEDS: Albuterol/Ipratropium 3.0-0.5 MG/3 ML Neb Soln INH SCH ×4 (11:24→21:18)
[2017-07-20] MEDS ORDERED: Tamsulosin 0.4 MG Cap.ER PO ONE (14:00)
[2017-07-20] MEDS: Cyclobenzaprine 10 MG Tab PO PRN (14:06)
[2017-07-20] MEDS: Albuterol/Ipratropium 3.0-0.5 MG/3 ML Neb Soln INH PRN ×2 (18:11→23:41)
[2017-07-20] MEDS: [UNRECOGNIZED DRUG - OTHER] PO SCH (21:12)
[2017-07-20] MEDS: ClonazePAM 1 MG Tab PO SCH (21:18)
[2017-07-21] MEDS: PSYLLIUM PO SCH ×5 (04:37→21:55)
[2017-07-21] MEDS: Acetaminophen/oxyCODONE 325-5 MG Tab PO PRN ×4 (05:05→22:07)
[2017-07-21] MEDS: Levothyroxine 75 MCG Tab PO SCH (07:26)
[2017-07-21] MEDS: Albuterol/Ipratropium 3.0-0.5 MG/3 ML Neb Soln INH SCH ×4 (07:28→21:51)
[2017-07-21] MEDS: Cyclobenzaprine 10 MG Tab PO PRN ×3 (07:35→22:07)
[2017-07-21] MEDS ORDERED: Sodium Chloride 0.9% 10 ML Syringe IV SCH (08:00)
[2017-07-21] MEDS ORDERED: Tamsulosin 0.4 MG Cap.ER PO SCH ×2 (09:00→21:00)
[2017-07-21] MEDS: DULoxetine 30 MG Cap PO SCH (09:11)
[2017-07-21] MEDS: tiZANidine 4 MG Tab PO SCH ×2 (09:12→21:54)
[2017-07-21] MEDS: Enoxaparin 40 MG/0.4 ML Syringe SUBCUT SCH (09:12)
[2017-07-21] MEDS: Gabapentin 300 MG Cap PO SCH ×4 (09:12→21:52)
[2017-07-21] MEDS: VERIFY SCOPOLAMINE PATCH TOP SCH (09:15)
[2017-07-21] MEDS: [UNRECOGNIZED DRUG - OTHER] PO SCH (21:53)
[2017-07-21] MEDS: ClonazePAM 1 MG Tab PO SCH (21:58)
[2017-07-22] MEDS: Acetaminophen/oxyCODONE 325-5 MG Tab PO PRN (04:28)
[2017-07-22] MEDS: Cyclobenzaprine 10 MG Tab PO PRN ×2 (04:28→10:42)
[2017-07-22] MEDS ORDERED: Acetaminophen/HYDROcodone 325-5 MG Tab PO PRN (07:03)
[2017-07-22] MEDS: Albuterol/Ipratropium 3.0-0.5 MG/3 ML Neb Soln INH SCH ×2 (07:25→10:40)
[2017-07-22] MEDS: PSYLLIUM PO SCH ×2 (07:50→10:37)
[2017-07-22] MEDS: Levothyroxine 75 MCG Tab PO SCH (07:52)
[2017-07-22] MEDS: Scopolamine 1.5 MG Transdermal Patch TOP SCH (07:52)
[2017-07-22] MEDS: Enoxaparin 40 MG/0.4 ML Syringe SUBCUT SCH (08:30)
[2017-07-22] MEDS: Gabapentin 300 MG Cap PO SCH (08:30)
[2017-07-22] MEDS: DULoxetine 30 MG Cap PO SCH (08:30)
[2017-07-22] MEDS: tiZANidine 4 MG Tab PO SCH (08:31)
--- NOTE | 2017-07-22 08:57 | PCM.PN ---
- General Info Date of Service: 07/22/17 Admission Dx/Problem (Free Text): Patient is POD 3 of an ALIF. He is doing well. He is having no pain issues at this time. He is ambulating without any difficulties. Functional Status: Reports: Pain Controlled, Tolerating Diet, Ambulating, Urinating - Patient Data Vitals - Most Recent: Last Vital Signs Temp 36.8 C 07/22/17 04:00 Pulse 91 07/22/17 07:26 Resp 18 07/22/17 04:00 BP 117/70 07/22/17 04:00 Pulse Ox 88 L 07/22/17 07:26 Weight - Most Recent: 225 lb 1.013 oz I&O - Last 24 Hours: Intake & Output 07/21/17 07/22/17 07/22/17 22:59 06:59 14:59 Intake Total 800 600 Output Total 850 1101 400 Balance -850 -301 200 Med Orders - Current: Current Medications Hydrocodone Bitart/Acetaminophen ([place] 325-5 Mg) 1 - 2 tab PO Q4H PRN PRN Reason: Pain Last Admin: 07/22/17 08:27 Dose: 2 tab Albuterol/Ipratropium (Duoneb 3.0-0.5 Mg/3 Ml) 3 ml INH QIDRT [facility] Last Admin: 07/22/17 07:25 Dose: 3 ml Albuterol/Ipratropium (Duoneb 3.0-0.5 Mg/3 Ml) 3 ml INH ASDIRECTED PRN PRN Reason: * Last Admin: 07/20/17 23:41 Dose: 3 ml Benzocaine/Menthol (Cepacol Sore Throat) 1 lozenge MUCMEM Q1H PRN PRN Reason: Sore Throat Last Admin: 07/19/17 18:41 Dose: 1 ivett Clonazepam (Klonopin) 3 mg PO BEDTIME [facility] Last Admin: 07/21/17 21:58 Dose: 3 mg Cyclobenzaprine HCl (Flexeril) 10 mg PO Q6H PRN PRN Reason: Muscle Spasm Last Admin: 07/22/17 04:28 Dose: 10 mg Duloxetine HCl (Cymbalta) 90 mg PO DAILY [facility] Last Admin: 07/22/17 08:30 Dose: 90 mg Enoxaparin Sodium (Lovenox) 40 mg SUBCUT DAILY [facility] Last Admin: 07/22/17 08:30 Dose: 40 mg Gabapentin (Neurontin) 300 mg PO TID [facility] Last Admin: 07/22/17 08:30 Dose: 300 mg Hydroxyzine HCl (Vistaril) 100 mg IM Q4H PRN PRN Reason: Pain Hydroxyzine HCl (Atarax) 100 mg PO Q4H PRN PRN Reason: Pain Levothyroxine Sodium (Levothyroxine) 150 mcg PO DAILY@0730 [facility] Last Admin: 07/22/17 07:52 Dose: 150 mcg Verify Scopolamine (Patch) 0 each TOP DAILY [facility] Last Admin: 07/21/17 09:15 Dose: Not Given Ondansetron HCl (Zofran) 4 mg IVPUSH Q4H PRN PRN Reason: Nausea Last Admin: 07/21/17 13:26 Dose: 4 mg Psyllium Cap (Ptom) 1 each PO QID [facility] Last Admin: 07/22/17 07:50 Dose: 1 each Arsenicum (Restful (Legs) (Ptom)) 2 each PO BEDTIME [facility] Last Admin: 07/21/17 21:53 Dose: 2 each Ranitidine HCl (Zantac) 300 mg PO BID [facility] Last Admin: 07/22/17 08:31 Dose: 300 mg Scopolamine (Transderm-Scop) 1.5 mg TOP Q72H [facility] Last Admin: 07/22/17 07:52 Dose: Not Given Senna/Docusate Sodium (Senna Plus) 2 tab PO BID [facility] Last Admin: 07/22/17 08:31 Dose: 2 tab Sodium Chloride (Saline Flush) 10 ml IV ASDIRECTED [facility] Tamsulosin HCl (Flomax) 0.4 mg PO BEDTIME [facility] Last Admin: 07/21/17 21:51 Dose: 0.4 mg Tizanidine HCl (Zanaflex) 4 mg PO BID [facility] Last Admin: 07/22/17 08:31 Dose: 4 mg Discontinued Medications Acetaminophen (Tylenol Extra Strength) 1,000 mg PO ONETIME ONE Stop: 07/19/17 07:31 Last Admin: 07/19/17 07:39 Dose: 1,000 mg Albuterol/Ipratropium (Duoneb 3.0-0.5 Mg/3 Ml) 3 ml NEB ONETIME ONE Stop: 07/19/17 09:16 Last Admin: 07/19/17 09:20 Dose: 3 ml Bisacodyl (Dulcolax) 20 mg PO BID [facility] Last Admin: 07/20/17 21:10 Dose: 20 mg Dexamethasone (Dexamethasone) Confirm Administered Dose 4 mg .ROUTE .STK-MED ONE Stop: 07/19/17 08:12 Fentanyl (Sublimaze) Confirm Administered Dose 250 mcg .ROUTE .STK-MED ONE Stop: 07/19/17 11:08 Fentanyl (Sublimaze) Confirm Administered Dose 250 mcg .ROUTE .STK-MED ONE Stop: 07/19/17 11:20 Fentanyl Citrate (Fentanyl) Confirm Administered Dose 500 mcg .ROUTE .STK-MED ONE Stop: 07/19/17 08:12 Gabapentin (Neurontin) 300 mg PO ONETIME ONE Stop: 07/19/17 07:31 Last Admin: 07/19/17 07:39 Dose: 300 mg Hydromorphone HCl (Dilaudid [employer] 15 Mg In Ns 30 Ml) 0 mg IV ASDIRECTED PRN; Protocol PRN Reason: Pain Last Admin: 07/19/17 09:48 Dose: 0.3 mg Hydromorphone HCl (Dilaudid) 2 - 4 mg PO Q4H PRN PRN Reason: Pain Lactated Ringer's (Ringers, Lactated) 1,000 mls @ 0 mls/hr IV ASDIRECTED [facility] PRN Reason: KVO Last Admin: 07/19/17 08:35 Dose: 25 mls/hr Cefazolin Sodium 2 gm/ Premix 20 mls @ 240 mls/hr IV ONETIME ONE Stop: 07/19/17 08:04 Last Admin: 07/19/17 15:26 Dose: Not Given Tranexamic Acid 1,000 mg/ (Sodium Chloride) 60 mls @ 240 mls/hr IV Q3H [facility] Stop: 07/19/17 12:49 Last Admin: 07/19/17 13:54 Dose: 240 mls/hr Ketamine HCl 100 mg/ Sodium (Chloride) 100 mls @ 19.2 mls/hr IV ASDIRECTED [facility] PRN Reason: 5 MCG/KG/MIN Stop: 07/19/17 11:35 Linezolid (Zyvox) Confirm Administered Dose 100 mls @ as directed .ROUTE .STK- MED ONE Stop: 07/19/17 06:36 Lactated Ringer's (Ringers, Lactated) Confirm Administered Dose 1,000 mls @ as directed .ROUTE .[facility]-MED ONE Stop: 07/19/17 09:06 Lactated Ringer's (Ringers, Lactated) Confirm Administered Dose 1,000 mls @ as directed .ROUTE .[facility] ONE Stop: 07/19/17 09:44 Propofol (Diprivan 100 Ml) Confirm Administered Dose 100 mls @ as directed .ROUTE .[facility]-MED ONE Stop: 07/19/17 13:40 Dextrose/Lactated Ringer's (Dextrose 5%-Lactated Ringers) 1,000 mls @ 175 mls/ hr IV ASDIRECTED [facility] Last Admin: 07/20/17 05:28 Dose: 175 mls/hr Cefazolin Sodium/Dextrose 2 gm (/ Premix) 50 mls @ 100 mls/hr IV Q8H [facility] Stop: 07/20/17 10:29 Last Admin: 07/20/17 10:04 Dose: 100 mls/hr Dextrose/Lactated Ringer's (Dextrose 5%-Lactated Ringers) 1,000 mls @ 100 mls/ hr IV ASDIRECTED [facility] Last Admin: 07/20/17 23:37 Dose: 100 mls/hr Ketamine HCl (Ketalar) 32 mg IV ONETIME ONE Stop: 07/19/17 09:36 Last Admin: 07/19/17 15:26 Dose: Not Given Linezolid (Zyvox) 200 mg IRR .[facility] ONE Stop: 07/19/17 12:29 Last Admin: 07/19/17 12:28 Dose: 200 mg Naloxone HCl (Narcan) 0.1 mg IV ASDIRECTED PRN PRN Reason: decreased respiratory rate Ondansetron HCl (Zofran) Confirm Administered Dose 4 mg .ROUTE .[facility]-MED ONE Stop: 07/19/17 08:12 Oxycodone/Acetaminophen (Percocet 325-5 Mg) 1 - 2 tab PO Q4H PRN PRN Reason: paiin Last Admin: 07/22/17 04:28 Dose: 1 tab Pantoprazole Sodium (Protonix Iv) 40 mg IV Q24H [facility] Last Admin: 07/19/17 15:34 Dose: 40 mg Povidone Iodine (Betadine 10% Soln) Confirm Administered Dose 1 ml .ROUTE .STK- MED ONE Stop: 07/19/17 06:36 Propofol (Diprivan 20 Ml) Confirm Administered Dose 200 mg .ROUTE .STK-MED ONE Stop: 07/19/17 08:12 Rocuronium [place] (Zemuron) Confirm Administered Dose 50 mg .ROUTE .STK-MED ONE Stop: 07/19/17 08:12 Succinylcholine Chloride (Succinylcholine In Ns Pf) Confirm Administered Dose 200 mg .ROUTE .STK-MED ONE Stop: 07/19/17 08:12 Tamsulosin HCl (Flomax) 0.4 mg PO DAILY [facility] Stop: 07/21/17 10:00 Last Admin: 07/21/17 09:12 Dose: 0.4 mg Tamsulosin HCl (Flomax) 0.4 mg PO ONETIME ONE Stop: 07/20/17 14:01 Last Admin: 07/20/17 14:01 Dose: 0.4 mg Thrombin (Thrombin-Jmi) Confirm Administered Dose 15,000 unit .ROUTE .STK-MED ONE Stop: 07/19/17 06:36 - Exam General: Alert, Oriented Back Exam: Normal Inspection Peripheral Pulses: 2+: Dorsalis Pedis (L), Dorsalis Pedis (R) Skin: Warm, Dry, Intact Wound/Incisions: Healing Well, Dressing Dry and Intact Neurological: No New Focal Deficit Psy/Mental Status: Alert - Problem List Review Problem List Initiated/Reviewed/Updated: Yes - Plan Plan:: A: POD 3 ALIF L5-S1 p: PT/OT, pain control, had BM will dc today with oral pain medication. He will follow up with ortho in 1 month for a recheck. He will notify us if there is any issues in the mean time.
[2017-07-22] MEDS: VERIFY SCOPOLAMINE PATCH TOP SCH (09:36)
[2017-07-22 11:28] VITALS: BP 103/61
--- NOTE | 2017-07-23 03:21 | DISCH ---
ADMISSION DIAGNOSES: 1. Lumbar stenosis. 2. Lumbar radiculopathy. 3. Lumbar foraminal stenosis. 4. Hypercholesterolemia. 5. Asthma. 6. Gastroesophageal reflux disease. 7. Peripheral neuropathy. 8. Anxiety. 9. Depression. 10.Hypothyroidism. 11.Prediabetic. 12.Thyroid disease. 13.Obesity. 14.Contact dermatitis. DISCHARGE DIAGNOSES: 1. Anterior lumbar interbody fusion L5-S1, interbody device placement L5-S1 and segmental instrumentation L5-S1. 2. Postop urinary retention. SURGEONS: Babatunde Chen MD and Maicol Chen DO. SURGERY PERFORMED: L5-S1 degenerative disk disease, lumbar foraminal stenosis L5-S1, and lumbar radiculopathy L5-S1. HISTORY: Kunal Narvaez is a 52-year-old male who had a posterior lumbar fusion previously. He developed left lower extremity radiculopathy, was treated nonoperatively which failed. After preoperative evaluation and discussion of possible risks and possible complications, he wished to proceed with surgical procedure. HOSPITAL COURSE: Kunal had his surgery on 07/19/2017. He had no operative complications. On postop day #1, he was started on physical therapy, regular diet, and oral pain medication. He was unable to void later in the afternoon with post residual ultrasound of 700 mL. He had a Robles catheter put in, then he was started on Flomax. On postop day #2, he had physical therapy, pain was controlled, and he was ambulating without any difficulty. On postop day 3, he was ready to be discharged to home without any complications. PHYSICAL EXAMINATION: GENERAL: Kunal Narvaez is a 52-year-old male in no acute distress. Robles was removed at 0500 hours today. VITAL SIGNS: TPR is 98.3, 85, 18. Blood pressure 117/70. HEENT: Negative. NECK: Supple. HEART: Regular rate and rhythm. LUNGS: Clear. ABDOMEN: Incision looks good. TANJA drain intact draining a small amount of light yellow drainage, 11 mL for the past 24 hours. EXTREMITIES: Pulses good and full range of motion. No peripheral edema. DISPOSITION: Discharged to home. CONDITION: Stable and improving. FOLLOWUP APPOINTMENT: 1. Gayla Ley PA-C on 07/27/2017 at 9:15 am. 2. Tia Sheriff, nurse-practitioner on 08/15/2017 at 10:15 a.m. NEW PRESCRIPTIONS: 1. [place] 5/325, 1 to 2 q.4 hours p.r.n. pain #40. 2. Flomax 0.4 mg oral at bedtime #14. HOME MEDICATIONS: He is to resume home medication Tylenol Extra Strength 1000 mg every 6 hours, albuterol sulfate 2.5 mg inhalation q.i.d., Ventolin inhaler 1 to 2 puffs every 4 hours p.r.n. shortness of breath, vitamin C 500 mg oral daily, vitamin D3 2000 international units oral daily, clonazepam 3 mg at bedtime, cyclobenzaprine 20 mg oral 4 times a day, Cymbalta mg every morning, EpiPen 0.3 mg IM as directed for bee sting, gemfibrozil 600 mg oral b.i.d., levothyroxine 150 mcg oral before breakfast, Skelaxin 800 mg oral 4 times a day, multivitamin one tablet daily, naproxen 220 mg oral 3 times a day, Metamucil one capsule four times daily, ranitidine 300 mg oral twice daily, Zocor 20 mg oral before dinner, triamcinolone acetonide 0.1% cream one applicator b.i.d. INSTRUCTIONS: Diet after discharge, usual diet as tolerated. Drink 8 to 10 glasses of water a day. Activity as tolerated. No lifting greater than 10 pounds for 6 weeks. Driving, do not drive while on pain medication. Notify provider if any fever, increased pain, swelling, redness, drainage, nausea, or vomiting. Keep site clean and dry. Wound incision care: Strip, empty, measure drainage, and record drainage of TANJA drain 4 times a day. Wear abdominal binder for 2 weeks and then as tolerated. Use incentive spirometer 10 times every hour while awake. Physical therapy instructions per Physical Therapy recommendations.
--- NOTE | 2017-07-25 11:35 | PN ---
DATE OF SERVICE: 07/21/2017 The patient has been afebrile with stable vital signs. He retained urine last night and had the Robles catheter placed back in. He was started on Flomax. We will give him an extra dose of that this morning and finally get the Robles catheter out tomorrow where at that point he will be probably able to go home. Otherwise, he did move his bowels this morning. We will discontinue the scheduled Dulcolax, continue the Senna Plus, however. Babatunde Chen MD /[phone]
== END 2017-07-22 13:35 | disposition home or self-care (01) | DRG 460 ==
LOC: JP.MS 06:57 → JP.SDS 06:57 → EDSTATUS 10:00 → UNDOADMIN 13:30 → JP.MS 13:30 → UNDODISIN 07-22 13:35
PROVIDERS: ADMIT Surgery; ATTEND Surgery
PROC: 0SG00A0 Fusion of Lumbar Vertebral Joint with Interbody Fusion Device, Anterior Approach, Anterior Column, Open Approach (ICD-10-PCS; principal; 2017-07-19)
PROC: 0SB20ZZ Excision of Lumbar Vertebral Disc, Open Approach (ICD-10-PCS; 2017-07-19)
DX: M48.061 Spinal stenosis, lumbar region without neurogenic claudication (principal); M43.26 Fusion of spine, lumbar region; M51.17 Intervertebral disc disorders with radiculopathy, lumbosacral region; Z98.1 Arthrodesis status; E03.9 Hypothyroidism, unspecified; J45.909 Unspecified asthma, uncomplicated; F32.9 Major depressive disorder, single episode, unspecified; F41.9 Anxiety disorder, unspecified; M54.9 Dorsalgia, unspecified; G89.29 Other chronic pain; K21.9 Gastro-esophageal reflux disease without esophagitis; E78.00 Pure hypercholesterolemia, unspecified; H54.7 Unspecified visual loss; Z87.891 Personal history of nicotine dependence; Z91.030 Bee allergy status; Z88.8 Allergy status to other drugs, medicaments and biological substances
CPT/HCPCS: 36415; 51702; 80048; 80053; 81003; 83735; 84100; 85027; 85610; 86850; 86900; 86901; 86920; 86922; 87070; 94640; 94762; 97162-GP; 97165-GO; 97530-GP; 97535-GP; A9270-GY; C1713; C9113; J0690; J1100; J1170; J1650; J2020; J2405; J2704; J3010; J3490; J7030; J7042; J7050; J7120; J7620

== ENCOUNTER 2019-01-09 12:54 | Emergency (ER) | payer MEDICARE, BC ==
[2019-01-09 13:09] VITALS: BP 149/76; PULSE 81
[2019-01-09] MEDS ORDERED: Triamcinolone Acetonide 40 MG/ML 1 ML MDV IM ONE (13:28)
--- NOTE | 2019-01-09 13:52 | EDM.PDOC ---
ED HPI GENERAL MEDICAL PROBLEM - General Chief Complaint: Bite:Animal, Insect Stated Complaint: MULTIPLE WASP BITES Time Seen by Provider: 01/09/19 13:56 Source of Information: Reports: Patient History Limitations: Reports: No Limitations - History of Present Illness INITIAL COMMENTS - FREE TEXT/NARRATIVE: pt has multiple bee stings. He thinks he was stung 12 times. Onset: Other (pt was stung yesterday. ) Duration: Hour(s): Location: Reports: Upper Extremity, Left, Upper Extremity, Right Associated Symptoms: Reports: No Other Symptoms, Other (pt feels very fatiqued. ) Generalized Pain Score (Numeric/FACES): 2 - Related Data Allergies Allergy/AdvReac Type Severity Reaction Status Date / Time venom-honey bee Allergy Severe Airway Verified 01/09/19 13:40 [bee venom (honey bee)] Tightness bupropion Allergy Cannot Verified 01/09/19 13:40 Remember escitalopram oxalate Allergy Diaphoresis Verified 01/09/19 13:40 [From Lexapro] Home Meds: Home Meds Ascorbic Acid [Vitamin C] 500 mg PO DAILY 12/20/14 [History] Cholecalciferol (Vitamin D3) [Vitamin D3] 2,000 unit PO DAILY 12/20/14 [History] ClonazePAM [KlonoPIN] 3 mg PO BEDTIME 12/20/14 [History] Cyclobenzaprine [Flexeril] 20 mg PO QID 12/20/14 [History] EPINEPHrine [Epipen] 0.3 mg IM ASDIRECTED PRN 12/20/14 [History] Gemfibrozil 600 mg PO BID 12/20/14 [History] Metaxalone [Skelaxin] 800 mg PO QID 12/20/14 [History] Simvastatin [Zocor] 20 mg PO ACDINNER 12/20/14 [History] Vitamin E 400 units PO DAILY 12/20/14 [History] Albuterol [Ventolin HFA] 1 - 2 inh INH Q4H PRN 07/16/15 [History] Multivitamin [Multi-Day Vitamins] 1 tab PO DAILY 07/16/15 [History] Psyllium Husk [Metamucil] 1 cap PO QID 07/16/15 [History] Triamcinolone Acetonide [Triamcinolone Acetonide 0.1% Crm] 1 applic TOP BID 03/21 [History] DULoxetine [Cymbalta] 90 mg PO QAM 08/19/15 [History] Albuterol Sulfate 2.5 mg IH QID PRN 08/11/16 [History] Naproxen Sodium [Aleve] 220 mg PO TID PRN 07/07/17 [History] Ranitidine HCl [Ranitidine] 300 mg PO BID 07/18/17 [History] Levothyroxine 150 mcg PO ACBREAKFAST 12/05/17 [History] Past Medical History HEENT History: Reports: Impaired Vision Cardiovascular History: Reports: High Cholesterol Respiratory History: Reports: Asthma Gastrointestinal History: Reports: GERD, Hemorrhoids Genitourinary History: Reports: None Musculoskeletal History: Reports: Back Pain, Chronic, Other (See Below) Other Musculoskeletal History: stenosis, scoliosis, DJD, rupured disc, broken vertabrae, trigger thumbs, slipped epiphthisis, craniotomy right side. s/p TLIF / ALIF. low back pain, bilat LE sánchez, numbness in fingers R hand Neurological History: Reports: Head Trauma, Neuropathy, Peripheral Psychiatric History: Reports: Anxiety, Depression Endocrine/Metabolic History: Reports: Hypothyroidism, Obesity/BMI 30+, Other ( See Below) Other Endocrine/Metabolic History: "prediabetic", thyroid disease Hematologic History: Reports: None Immunologic History: Reports: None Oncologic (Cancer) History: Reports: None Dermatologic History: Reports: Eczema, Other (See Below) Other Dermatologic History: contact dermatitis - Infectious Disease History Infectious Disease History: Reports: Chicken Pox - Past Surgical History Head Surgeries/Procedures: Reports: Craniotomy HEENT Surgical History: Reports: Tonsillectomy Cardiovascular Surgical History: Reports: None Respiratory Surgical History: Reports: None GI Surgical History: Reports: Colonoscopy, Hernia, Inguinal, Hernia Repair/Other Neurological Surgical History: Reports: Scoliosis, Spinal Fusion, Other (See Below) Social & Family History - Family History Family Medical History: Noncontributory - Tobacco Use Smoking Status *Q: Never Smoker Second Hand Smoke Exposure: No - Caffeine Use Caffeine Use: Reports: Tea - Recreational Drug Use Recreational Drug Use: Yes Drug Use in Last 12 Months: Yes Recreational Drug Type: Reports: Marijuana/Hashish Recreational Drug Use Frequency: Daily ED ROS GENERAL - Review of Systems Review Of Systems: See Below Constitutional: Reports: No Symptoms HEENT: Reports: No Symptoms Respiratory: Reports: No Symptoms Cardiovascular: Reports: No Symptoms Endocrine: Reports: No Symptoms GI/Abdominal: Reports: No Symptoms : Reports: No Symptoms Musculoskeletal: Reports: Other (pt has been very tired and has not felt just right since that time. ) Skin: Reports: No Symptoms ED EXAM, ANIMAL BITE - Physical Exam Exam: See Below Text/Narrative:: Pt arrived with a history of being stung 12 times. He did not have hives or any resp difficulty. Exam Limited By: No Limitations General Appearance: Alert, Anxious, Mild Distress Respiratory/Chest: No Respiratory Distress Cardiovascular: Regular Rate, Rhythm GI/Abdominal: Soft, Non-Tender Rectal (Males) Exam: Deferred Back Exam: Normal Inspection Extremities: Normal Inspection Course - Vital Signs Last Recorded V/S: Last Vital Signs Temp 36.2 C 01/09/19 13:42 Pulse 81 01/09/19 13:42 Resp 20 01/09/19 13:42 BP 149/76 H 01/09/19 13:42 Pulse Ox 96 01/09/19 13:42 - Orders/Labs/Meds Meds: Medications Discontinued Medications Generic Name Dose Route Start Last Admin Trade Name Freq PRN Reason Stop Dose Admin Triamcinolone Acetonide 60 mg 01/09/19 13:28 01/09/19 13:38 Kenalog-40 IM 01/09/19 13:29 60 mg ASDIRECTED ONE Administration - Re-Assessments/Exams Free Text/Narrative Re-Assessment/Exam: 01/09/19 14:01 pt was given kenalog 60 mg im. Departure - Departure Time of Disposition: 13:49 Disposition: Home, Self-Care 01 Condition: Fair Clinical Impression: Local reaction to bee sting - Discharge Information Referrals: Chance Gonzalez MD [Primary Care Provider] - Forms: ED Department Discharge
== END 2019-01-09 14:13 | disposition home or self-care (01) ==
LOC: JP.ED 12:54
DX: T63.441A Toxic effect of venom of bees, accidental (unintentional), initial encounter (principal); E78.00 Pure hypercholesterolemia, unspecified; K21.9 Gastro-esophageal reflux disease without esophagitis; F41.9 Anxiety disorder, unspecified; F32.9 Major depressive disorder, single episode, unspecified; E03.9 Hypothyroidism, unspecified; Z79.899 Other long term (current) drug therapy; Z91.030 Bee allergy status; Z88.8 Allergy status to other drugs, medicaments and biological substances
CPT/HCPCS: 96372; 99282; J3301; 99283

== ENCOUNTER 2019-12-22 13:42 | Emergency (ER) | payer MEDICARE, BC ==
[2019-12-22 13:56] VITALS: BP 117/80; PULSE 86
--- NOTE | 2019-12-22 14:45 | EDM.PDOC ---
ED HPI GENERAL MEDICAL PROBLEM - General Chief Complaint: Bite:Animal, Insect Stated Complaint: BEE STINGS Time Seen by Provider: 12/22/19 14:13 Source of Information: Reports: Patient, RN Notes Reviewed History Limitations: Reports: No Limitations - History of Present Illness INITIAL COMMENTS - FREE TEXT/NARRATIVE: Kunal reports several bee stings to bilateral arms, neck, posterior head yesterday. He states he used his epi pen without difficulty, denies any swelling of the face, tongue or throat. He denies any difficulty breathing. Lower Arm Pain Score (Numeric/FACES): 4 - Related Data Allergies Allergy/AdvReac Type Severity Reaction Status Date / Time venom-honey bee Allergy Severe Airway Verified 12/22/19 14:00 [bee venom (honey bee)] Tightness bupropion Allergy Cannot Verified 12/22/19 14:00 Remember escitalopram oxalate Allergy Diaphoresis Verified 12/22/19 14:00 [From [employer]] Home Meds: Home Meds Ascorbic Acid [Vitamin C] 500 mg PO DAILY 12/20/14 [History] Cholecalciferol (Vitamin D3) [Vitamin D3] 2,000 unit PO DAILY 12/20/14 [History] ClonazePAM [KlonoPIN] 3 mg PO BEDTIME 12/20/14 [History] Cyclobenzaprine [Flexeril] 20 mg PO QID 12/20/14 [History] EPINEPHrine [Epipen] 0.3 mg IM ASDIRECTED PRN 12/20/14 [History] Gemfibrozil 600 mg PO BID 12/20/14 [History] Simvastatin [Zocor] 20 mg PO ACDINNER 12/20/14 [History] Vitamin E 400 units PO DAILY 12/20/14 [History] Albuterol [Ventolin HFA] 1 - 2 inh INH Q4H PRN 07/16/15 [History] Multivitamin [Multi-Day Vitamins] 1 tab PO DAILY 07/16/15 [History] Psyllium Husk [Metamucil] 1 cap PO QID 07/16/15 [History] Triamcinolone Acetonide [Triamcinolone Acetonide 0.1% Crm] 1 applic TOP BID 07/16/15 [History] DULoxetine [Cymbalta] 60 mg PO QAM 08/19/15 [History] Albuterol Sulfate 2.5 mg IH QID PRN 08/11/16 [History] Naproxen Sodium [Aleve] 220 mg PO TID PRN 07/07/17 [History] Ranitidine HCl [Ranitidine] 300 mg PO BID 07/18/17 [History] Levothyroxine 150 mcg PO ACBREAKFAST 12/05/17 [History] Emtricitabine/Tenofovir [Truvada 200 MG-300 MG] 1 tab PO DAILY 05/09/19 [History] Past Medical History HEENT History: Reports: Impaired Vision Cardiovascular History: Reports: High Cholesterol Respiratory History: Reports: Asthma Gastrointestinal History: Reports: GERD, Hemorrhoids Genitourinary History: Reports: None Musculoskeletal History: Reports: Back Pain, Chronic, Other (See Below) Other Musculoskeletal History: stenosis, scoliosis, DJD, rupured disc, broken vertabrae, trigger thumbs, slipped epiphthisis, craniotomy right side. s/p TLIF/ ALIF. low back pain, bilat LE sánchez, numbness in fingers R hand Neurological History: Reports: Head Trauma, Neuropathy, Peripheral Psychiatric History: Reports: Anxiety, Depression Endocrine/Metabolic History: Reports: Hypothyroidism, Obesity/BMI 30+, Other (See Below) Other Endocrine/Metabolic History: "prediabetic", thyroid disease Hematologic History: Reports: None Immunologic History: Reports: None Oncologic (Cancer) History: Reports: None Dermatologic History: Reports: Eczema, Other (See Below) Other Dermatologic History: contact dermatitis - Infectious Disease History Infectious Disease History: Reports: Chicken Pox - Past Surgical History Head Surgeries/Procedures: Reports: Craniotomy HEENT Surgical History: Reports: Tonsillectomy Cardiovascular Surgical History: Reports: None Respiratory Surgical History: Reports: None GI Surgical History: Reports: Colonoscopy, Hernia, Inguinal, Hernia Repair/Other Neurological Surgical History: Reports: Scoliosis, Spinal Fusion, Other (See Below) Social & Family History - Family History Family Medical History: Noncontributory - Tobacco Use Smoking Status *Q: Never Smoker - Caffeine Use Caffeine Use: Reports: Tea - Recreational Drug Use Recreational Drug Use: Yes Recreational Drug Type: Reports: Marijuana/Hashish ED ROS GENERAL - Review of Systems Review Of Systems: See Below Constitutional: Reports: No Symptoms HEENT: Denies: Throat Pain, Throat Swelling Respiratory: Denies: Shortness of Breath, Wheezing, Cough, Sputum Cardiovascular: Reports: No Symptoms Musculoskeletal: Reports: Back Pain, Other (He complains of chronic back pain, states pain is no worse at this time. ). Denies: Neck Pain, Shoulder Pain, Arm Pain Skin: Reports: Rash, Urticaria, Other (edema, pruritis to bilateral arms, left neck and posterior head at sites of bee stings from last night. ) Neurological: Reports: No Symptoms Psychiatric: Reports: No Symptoms Hematologic/Lymphatic: Reports: No Symptoms Immunologic: Reports: No Symptoms ED EXAM, ANIMAL BITE - Physical Exam Exam: See Below Exam Limited By: No Limitations General Appearance: Alert, WD/WN, No Apparent Distress Eye Exam: Bilateral Eye: Normal Inspection, PERRL Ears: Normal External Exam, Normal Canal, Hearing Grossly Normal, Normal TMs Nose: Normal Inspection, Normal Mucosa, No Blood Throat/Mouth: Normal Inspection, Normal Lips, Normal Teeth, Normal Gums, Normal Oropharynx, Normal Voice, No Airway Compromise, Other (no edema) Head: Atraumatic, Normocephalic, Other (noted edema to left posterior scalp with itching) Neck: Supple, Full Range of Motion, Lymphadenopathy (L), Other (edema to left anterior neck, no fluctuance or erythema noted). No: Lymphadenopathy (R) Respiratory/Chest: No Respiratory Distress, Lungs Clear, Normal Breath Sounds, No Accessory Muscle Use, Chest Non-Tender. No: Crackles, Rales, Rhonchi, Wheezing Cardiovascular: Normal Peripheral Pulses, Regular Rate, Rhythm, No Edema, No Gallop, No Murmur, No Rub Peripheral Pulses: 2+: Radial (L), Radial (R) Back Exam: Normal Inspection, Other (no sites of insect bites noted). No: CVA Tenderness (R), CVA Tenderness (L) Extremities: Non-Tender, Normal Capillary Refill, Other (noted urticaria to bilateral forearms with edema from multiple bee stings. CMS intact, full ROM and sensation intact ) Neurological: Alert, Oriented Psychiatric: Normal Affect, Normal Mood Skin Exam: Warm/Dry, Other (urticaria to bilateral forearms, left anterior and posterior neck. No fluctuance or signs of infection noted). No: Cyanosis, Diaphoresis, Ecchymosis, Mottled, Pallor, Petechiae Course - Vital Signs Last Recorded V/S: Last Vital Signs Temp 36.6 C 12/22/19 13:58 Pulse 86 12/22/19 13:58 Resp 16 12/22/19 13:58 BP 117/80 12/22/19 13:58 Pulse Ox 96 12/22/19 13:58 - Re-Assessments/Exams Free Text/Narrative Re-Assessment/Exam: Review and discussion of bee sting/urticaria management with current medications. Patient verbalized understanding of risk for drowsiness with use of antihistamine, he wishes to try its use for pruritus. Patient will decrease clonzepam dose when using hydroxyzine. Departure - Departure Time of Disposition: 14:45 Disposition: Home, Self-Care 01 Condition: Good Clinical Impression: Local reaction to bee sting - Discharge Information *PRESCRIPTION DRUG MONITORING PROGRAM REVIEWED*: Not Applicable *COPY OF PRESCRIPTION DRUG MONITORING REPORT IN PATIENT ARIEL: Not Applicable Instructions: Bee, Wasp, or Hornet Sting, Adult Referrals: Chance Gonzalez MD [Primary Care Provider] - Forms: ED Department Discharge Additional Instructions: Watch for any signs of worsening. Start use of medrol dose pack as directed. May take hydroxyzine 10mg by mouth three times a day for itching (decreased clonazepam to half dose at bedtime with use of hydroxyzine as it can cause significant drowsiness). Refill epi pen as directed. May try use of topical benadryl for itching if desired three times a day. Return for any issues or concerns. Sepsis Event Note (ED) - Evaluation Sepsis Screening Result: No Definite Risk - Focused Exam Vital Signs: Vital Signs Temp Pulse Resp BP Pulse Ox 12/22/19 13:58 36.6 C 86 16 117/80 96 12/22/19 13:55 36.6 C 86 16 117/80 96 - Assessment/Plan Assessment:: Local reaction to bee sting Plan: Watch for any signs of worsening. Start use of medrol dose pack as directed. May take hydroxyzine 10mg by mouth three times a day for itching (decreased clonazepam to half dose at bedtime with use of hydroxyzine as it can cause significant drowsiness). Refill epi pen as directed. May try use of topical benadryl for itching if desired three times a day. Return for any issues or concerns.
== END 2019-12-22 14:57 | disposition home or self-care (01) ==
LOC: JP.ED 13:42
DX: T63.441A Toxic effect of venom of bees, accidental (unintentional), initial encounter (principal); E78.00 Pure hypercholesterolemia, unspecified; J45.909 Unspecified asthma, uncomplicated; K21.9 Gastro-esophageal reflux disease without esophagitis; E03.9 Hypothyroidism, unspecified; E66.9 Obesity, unspecified; Z91.030 Bee allergy status; Z88.8 Allergy status to other drugs, medicaments and biological substances; Z79.899 Other long term (current) drug therapy; Z68.35 Body mass index [BMI] 35.0-35.9, adult
CPT/HCPCS: 99282; 99283

== ENCOUNTER 2021-02-25 13:07 | Emergency (ER) | payer MEDICARE, BC ==
[2021-02-25 13:30] VITALS: BP 128/76; PULSE 77
[2021-02-25] MEDS ORDERED: Bacitracin Oint 1 GM U/D Packet TOP ONE (13:55)
--- NOTE | 2021-02-25 13:55 | EDM.PDOC ---
ED HPI GENERAL MEDICAL PROBLEM - General Chief Complaint: Laceration Stated Complaint: CUTTING FINGER Time Seen by Provider: 02/25/21 13:35 Source of Information: Reports: Patient, Old Records History Limitations: Reports: No Limitations - History of Present Illness INITIAL COMMENTS - FREE TEXT/NARRATIVE: 55 yo male lacerated his R index finger before arrival. Tetanus is UTD. Onset: Today, Sudden Onset Date: 02/25/21 Duration: Minutes: Location: Reports: Upper Extremity, Right Quality: Reports: Burning Severity: Mild Improves with: Reports: None Worsens with: Reports: None Context: Reports: Trauma Associated Symptoms: Reports: No Other Symptoms Treatments COUNCIL ON AGING DIRECTOR: Reports: Other (see below) (none) - Related Data Allergies Allergy/AdvReac Type Severity Reaction Status Date / Time venom-honey bee Allergy Severe Airway Verified 02/25/21 13:46 [bee venom (honey bee)] Tightness bupropion Allergy Cannot Verified 02/25/21 13:46 Remember escitalopram oxalate Allergy Diaphoresis Verified 02/25/21 13:46 [From [employer]] Home Meds: Home Meds Cholecalciferol (Vitamin D3) [Vitamin D3] 2 tab PO DAILY 12/20/14 [History] ClonazePAM [KlonoPIN] 3 mg PO BEDTIME 12/20/14 [History] EPINEPHrine [Epipen] 0.3 mg IM ASDIRECTED PRN 12/20/14 [History] Gemfibrozil 600 mg PO BID 12/20/14 [History] Simvastatin [Zocor] 20 mg PO ACDINNER 12/20/14 [History] Vitamin E 400 units PO DAILY 12/20/14 [History] Albuterol [Ventolin HFA] 1 - 2 inh INH Q4H PRN 07/16/15 [History] Multivitamin [Multi-Day Vitamins] 1 tab PO DAILY 07/16/15 [History] Psyllium Husk [Metamucil] 1 cap PO DAILY 07/16/15 [History] Triamcinolone Acetonide [Triamcinolone Acetonide 0.1% Crm] 1 applic TOP BID 07/16/15 [History] DULoxetine [Cymbalta] 60 mg PO BID 08/19/15 [History] Albuterol Sulfate 2.5 mg IH QID PRN 08/11/16 [History] Naproxen Sodium [Aleve] 3 tab PO TID PRN 07/07/17 [History] Levothyroxine 150 mcg PO ACBREAKFAST 12/05/17 [History] Emtricitabine/Tenofovir [Truvada 200 MG-300 MG] 1 tab PO DAILY 05/09/19 [History] Cyanocobalamin (Vitamin B-12) [B-12] 1,000 mcg PO DAILY 09/26/20 [History] Cyclobenzaprine [Flexeril] 1 - 2 tab PO TID PRN 09/26/20 [History] Gabapentin [Neurontin] 3 cap PO TID 09/26/20 [History] Niacin 500 mg PO DAILY 09/26/20 [History] Omeprazole 20 mg PO ACBREAKFAST 09/26/20 [History] Phentermine HCl [Lomaira] 8 mg PO BID 09/26/20 [History] Pyridoxine HCl (Vitamin B6) [Vitamin B-6] 25 mg PO DAILY 09/26/20 [History] bisacodyL [Dulcolax] 2 tab PO DAILY 09/26/20 [History] Past Medical History HEENT History: Reports: Impaired Vision Cardiovascular History: Reports: High Cholesterol Respiratory History: Reports: Asthma Gastrointestinal History: Reports: GERD, Hemorrhoids Genitourinary History: Reports: None Musculoskeletal History: Reports: Back Pain, Chronic, Other (See Below) Other Musculoskeletal History: stenosis, scoliosis, DJD, rupured disc, broken vertabrae, trigger thumbs, slipped epiphthisis, craniotomy right side. s/p TLIF/ ALIF. low back pain, bilat LE sánchez, numbness in fingers R hand Neurological History: Reports: Head Trauma, Neuropathy, Peripheral Psychiatric History: Reports: Anxiety, Depression Endocrine/Metabolic History: Reports: Hypothyroidism, Obesity/BMI 30+, Other (See Below) Other Endocrine/Metabolic History: "prediabetic", thyroid disease Hematologic History: Reports: None Immunologic History: Reports: None Oncologic (Cancer) History: Reports: None Dermatologic History: Reports: Eczema, Other (See Below) Other Dermatologic History: contact dermatitis - Infectious Disease History Infectious Disease History: Reports: Chicken Pox - Past Surgical History Head Surgeries/Procedures: Reports: Craniotomy HEENT Surgical History: Reports: Tonsillectomy Cardiovascular Surgical History: Reports: None Respiratory Surgical History: Reports: None GI Surgical History: Reports: Colonoscopy, Hernia, Inguinal, Hernia Repair/Other Endocrine Surgical History: Reports: None Neurological Surgical History: Reports: Scoliosis, Spinal Fusion, Other (See Below) Other Neurological Surgeries/Procedures: craniotomy Musculoskeletal Surgical History: Reports: Carpal Tunnel Other Musculoskeletal Surgeries/Procedures:: TRIGGER FINGER RELEAS ON THUMB BILAT. HIP SURGERY AT AGE 11 ON LEFT FOR SLIPPED EPEPHTHISIS Dermatological Surgical History: Reports: None Social & Family History - Family History Family Medical History: No Pertinent Family History - Caffeine Use Caffeine Use: Reports: Tea ED ROS GENERAL - Review of Systems Review Of Systems: See Below Constitutional: Reports: No Symptoms Musculoskeletal: Reports: No Symptoms Skin: Reports: Wound (Dorsum of R index finger) Neurological: Reports: No Symptoms ED EXAM, SKIN/RASH Exam: See Below Exam Limited By: No Limitations General Appearance: Alert, WD/WN, No Apparent Distress Extremities: Other (wound R index finger, good extension strength. No decreased sensation. ) Neurological: Alert, Oriented, CN II-XII Intact, Normal Cognition, No Motor/Sensory Deficits Skin: Warm, Dry, Normal Color, No Rash, Wound/Incision (1.75 cm transverse finger lac to dorsum of middle phalanx of R index finger). No: Intact Location, Skin: Upper Extremity, Right Characteristics: Linear Associated features: Tenderness ED SKIN PROCEDURES - Laceration/Wound Repair Right Dorsal Digit - 2nd (Index) Appearance: Subcutaneous, Linear Distal NVT: Neuro & Vascular Intact, No Tendon Injury Anesthetic Type: Local Local Anesthesia - Lidocaine (Xylocaine): 1% with EPI Local Anesthetic Volume: 2cc Skin Prep: Saline Exploration/Debridement/Repair: Wound Explored Closed with: Sutures Lac/Wound length In cm: 1.7 # of Sutures: 4 Suture Type: Nylon, Interrupted, Simple Drain Placement: No Sterile Dressing Applied: Nurse Tetanus Status Addressed: Yes Complications: No Course - Vital Signs Last Recorded V/S: Last Vital Signs Temp 36.3 C 02/25/21 13:29 Pulse 77 02/25/21 13:29 Resp 16 02/25/21 13:29 BP 128/76 02/25/21 13:29 Pulse Ox 96 02/25/21 13:29 Departure - Departure Time of Disposition: 13:55 Disposition: Home, Self-Care 01 Condition: Good Clinical Impression: Laceration of right index finger Qualifiers: Encounter type: initial encounter Damage to nail status: without damage Foreign body presence: without foreign body Qualified Code(s): S61.210A - Laceration without foreign body of right index finger without damage to nail, initial encounter - Discharge Information *PRESCRIPTION DRUG MONITORING PROGRAM REVIEWED*: Not Applicable *COPY OF PRESCRIPTION DRUG MONITORING REPORT IN PATIENT ARIEL: Not Applicable Instructions: Laceration Care, Adult, [id number] Referrals: Chance Gonzalez MD [Primary Care Provider] - Additional Instructions: Clean wound twice daily with soap and water. Dry. Apply Bacitracin ointment and a new dressing. Recheck for signs of infection. Stitches out in 9 days. Acetaminophen for pain relief as needed. Sepsis Event Note (ED) - Focused Exam Vital Signs: Vital Signs Temp Pulse Resp BP Pulse Ox 02/25/21 13:29 36.3 C 77 16 128/76 96
== END 2021-02-25 14:09 | disposition home or self-care (01) ==
LOC: JP.ED 13:07
DX: S61.210A Laceration without foreign body of right index finger without damage to nail, initial encounter (principal); E78.00 Pure hypercholesterolemia, unspecified; J45.909 Unspecified asthma, uncomplicated; K21.9 Gastro-esophageal reflux disease without esophagitis; E03.9 Hypothyroidism, unspecified; E66.9 Obesity, unspecified; Z68.31 Body mass index [BMI] 31.0-31.9, adult; W26.8XXA Contact with other sharp object(s), not elsewhere classified, initial encounter
CPT/HCPCS: 12001; 99282-25

== ENCOUNTER → 2022-03-08 | Emergency (ER) | payer MEDICARE, BC | LOC: JP.ED 11:07 | DX: S70.362A Insect bite (nonvenomous), left thigh, initial encounter (principal); W57.XXXA Bitten or stung by nonvenomous insect and other nonvenomous arthropods, initial encounter | CPT/HCPCS: 99282 ==

== ENCOUNTER 2024-11-16 15:33 | Emergency (ER) | payer MEDICARE, BC ==
[2024-11-16] MEDS: Albuterol/Ipratropium 3.0-0.5 MG/3 ML Neb Soln NEB ONE (16:36)
[2024-11-16 16:40] LABS: BASOPHILS ABSOLUTE AUTO 0.05 K/uL (0.00-0.10); BASOPHILS PERCENT AUTO 1.2 % (0.1-1.3); EOSINOPHILS ABSOLUTE AUTO 0.13 K/uL (0.00-0.40); EOSINOPHILS PERCENT AUTO 3.1 % (0.0-5.4); HEMATOCRIT 31.6 % (38.4-49.7); IMMATURE GRAN PERCENT AUTO 0.2 % (0.0-0.7); LYMPHOCYTES ABSOLUTE AUTO 1.46 K/uL (0.8-3.3); LYMPHOCYTES PERCENT AUTO 34.9 % (11.4-47.7); MEAN CORPUSCULAR HEMOGLOBIN 27.9 pg (31.6-35.5); MEAN CORPUSCULAR HGB CONC 31.6 g/dL (31.6-35.5); MEAN CORPUSCULAR VOLUME 88.3 fL (81.4-99.0); MONOCYTES ABSOLUTE AUTO 0.46 K/uL (0.20-0.90); NEUTROPHILS ABSOLUTE AUTO 2.07 K/uL (1.0-7.6); NEUTROPHILS PERCENT AUTO 49.6 % (40.0-78.1); PLATELET COUNT,PLT 415 K/uL (130-375); RED BLOOD CELL COUNT 3.58 M/uL (4.14-5.76); WHITE BLOOD CELL COUNT,WBC 4.2 K/uL (3.2-11.0)
[2024-11-16 16:41] LABS: IMMATURE GRAN ABSOLUTE AUTO 0.01 K/uL (0.00-0.23)
[2024-11-16 16:42] VITALS: BP 147/75; PULSE 71
[2024-11-16 17:03] LABS: A/G RATIO 1.3 (1.2-2.2); ALANINE AMINOTRANSFERASE,ALT 19 U/L (12-78); ALBUMIN 4.2 g/dL (3.4-5.0); ALKALINE PHOSPHATASE 101 U/L (46-116); ASPARTATE AMNIOTRANSFERASE,AST 16 U/L (15-37); BILIRUBIN TOTAL 0.3 mg/dL (0.2-1.0); BLOOD UREA NITROGEN,BUN 13 mg/dL (7-18); CALCIUM 9.4 mg/dL (8.5-10.1); CARBON DIOXIDE,CO2 29 mmol/L (21-32); CHLORIDE,CL 103 mmol/L (100-108); CREATININE 0.8 mg/dL (0.8-1.3); ESTIMATED GFR 101 mL/min (>60); GLUCOSE RANDOM 102 mg/dL (74-106); POTASSIUM,K 4.4 mmol/L (3.6-5.2); PROTEIN TOTAL,TP 7.5 g/dL (6.4-8.2); SODIUM,NA 137 mmol/L (140-148); TROPONIN I HIGH SENSITIVITY 5.5 pg/mL (<=60.3)
[2024-11-16 17:04] LABS: ANION GAP 9.4 mmol/L (5.0-14.0); C-REACTIVE PROTEIN < 0.50 mg/dL (<0.50)
[2024-11-16] MEDS: Sodium Chloride 0.9% 100 ML IV SCH (18:16)
[2024-11-16] MEDS: Iopamidol 755 Mg/ML 100 ML Bottle IV SCH (18:16)
== END 2024-11-16 18:59 | disposition home or self-care (01) ==
LOC: JP.ED 15:33
DX: D64.9 Anemia, unspecified (principal); J45.909 Unspecified asthma, uncomplicated; E78.00 Pure hypercholesterolemia, unspecified; K21.9 Gastro-esophageal reflux disease without esophagitis; E03.9 Hypothyroidism, unspecified; Z91.030 Bee allergy status; Z91.018 Allergy to other foods; Z79.899 Other long term (current) drug therapy; Z79.51 Long term (current) use of inhaled steroids
CPT/HCPCS: 36415; 71046; 71275; 80053; 84484; 85025; 85379; 86140; 93005; 94640; 99285; A9270; Q9967

== ENCOUNTER 2025-02-12 14:06 | Emergency (ER) | payer MEDICARE, BC ==
[2025-02-12 17:01] LABS: PLATELET COUNT,PLT 477 K/uL (130-375); RED BLOOD CELL COUNT 3.55 M/uL (4.14-5.76); WHITE BLOOD CELL COUNT,WBC 2.9 K/uL (3.2-11.0)
[2025-02-12 17:20] LABS: INR 1.0
[2025-02-12 17:25] LABS: A/G RATIO 1.1 (1.2-2.2); ALANINE AMINOTRANSFERASE,ALT 17 U/L (12-78); ASPARTATE AMNIOTRANSFERASE,AST 13 U/L (15-37); BILIRUBIN TOTAL 0.3 mg/dL (0.2-1.0); BLOOD UREA NITROGEN,BUN 14 mg/dL (7-18); CARBON DIOXIDE,CO2 29 mmol/L (21-32); CHLORIDE,CL 104 mmol/L (100-108); CREATININE 0.7 mg/dL (0.8-1.3); EST CRCL DRUG DOSING (CG) 100.00 mL/min; ESTIMATED GFR 105 mL/min (>60); GLUCOSE RANDOM 104 mg/dL (74-106); POTASSIUM,K 4.2 mmol/L (3.6-5.2); PROTEIN TOTAL,TP 7.3 g/dL (6.4-8.2); SODIUM,NA 139 mmol/L (140-148)
[2025-02-12 17:29] LABS: BAND ABSOLUTE MAN 0.03 K/uL; BAND PERCENT MAN 1 % (5-11); EOSINOPHILS ABSOLUTE MAN 0.09 K/uL (0.00-0.40); EOSINOPHILS PERCENT MAN 3 % (2-4); LYMPHOCYTES ABSOLUTE MAN 1.42 K/uL (0.8-3.3); LYMPHOCYTES PERCENT MAN 49 % (24-44); MONOCYTES ABSOLUTE MAN 0.17 K/uL (0.20-0.90); MONOCYTES PERCENT MAN 6 % (2-6); NEUTROPHILS ABSOLUTE MAN 1.19 K/uL (1.0-7.6); SEG NEUTROPHILS PERCENT MAN 41 % (36-66)
[2025-02-12 17:30] LABS: ATYPICAL LYMPHOCYTES FEW
[2025-02-12 18:39] LABS: APPEARANCE,URINE CLEAR (CLEAR); GLUCOSE,URINE NEGATIVE (NEGATIVE); OCCULT BLOOD,URINE NEGATIVE (NEGATIVE)
[2025-02-12 18:46] LABS: AMPHETAMINES SCREEN, URINE NEGATIVE (NEGATIVE); METHADONE SCREEN, URINE NEGATIVE (NEGATIVE); METHAMPHETAMINES SCREEN, URINE NEGATIVE (NEGATIVE); OXYCODONE SCREEN,URINE NEGATIVE (NEGATIVE); PROPOXYPHENE SCREEN,URINE NEGATIVE (NEGATIVE); SQUAMOUS EPITHELIAL CELLS,UR RARE /HPF; THC SCREEN,URINE 50 NG/ML NEGATIVE (NEGATIVE); UROTHELIAL CELLS,URINE NOT SEEN /HPF
[2025-02-12 19:10] VITALS: BP 135/84; PULSE 74
== END 2025-02-12 19:50 | disposition home or self-care (01) ==
LOC: JP.ED 14:06
DX: K59.00 Constipation, unspecified (principal); J45.909 Unspecified asthma, uncomplicated; K21.9 Gastro-esophageal reflux disease without esophagitis; E78.00 Pure hypercholesterolemia, unspecified; E66.9 Obesity, unspecified; E03.9 Hypothyroidism, unspecified; Z91.011 Allergy to milk products; Z91.030 Bee allergy status; Z91.048 Other nonmedicinal substance allergy status; Z88.8 Allergy status to other drugs, medicaments and biological substances; Z79.890 Hormone replacement therapy; Z79.899 Other long term (current) drug therapy; Z68.31 Body mass index [BMI] 31.0-31.9, adult
CPT/HCPCS: 36415; 74176; 80053; 80305-QW; 81001; 82272; 83605; 83735; 84443; 85025; 85610; 86140; 99283; 99284